=== PATIENT | male | born 1975 | race American Indian/Alaskan Native ===

== ENCOUNTER 2017-02-20 12:18 | Emergency (ER) | payer SELFPAY ==
[2017-02-20 13:01] VITALS: BP 126/76
[2017-02-20 13:27] LABS: Basophils % (Auto) 0.7 % (0.0-1.8); Eosinophils % (Auto) 2.4 % (0.0-4.3); Hematocrit 42.7 % (35.5-45.6); Hemoglobin 14.4 gm/dl (11.8-15.2); Mean Corpuscular HGB Conc 34 % (32-34); Mean Corpuscular Hemoglobin 29 pg (28-32); Mean Corpuscular Volume 86 fl (84-94); Platelet Count 280 K/mm3 (140-440); Red Blood Count 4.99 M/mm3 (3.65-5.03); Red Cell Distribution Width 13.4 % (13.2-15.2); White Blood Count 6.4 K/mm3 (4.5-11.0)
[2017-02-20 13:37] LABS: Anion Gap 19 mmol/L; BUN/Creatinine Ratio 12.22; Blood Urea Nitrogen 11 mg/dL (9-20); Calcium 9.3 mg/dL (8.4-10.2); Carbon Dioxide 23 mmol/L (22-30); Chloride 97.5 mmol/L (98-107); Glucose 408 mg/dL (75-100); Potassium 4.2 mmol/L (3.6-5.0); Sodium 135 mmol/L (137-145)
[2017-02-20 13:47] LABS: Bilirubin,Urine NEG (Negative); Blood,Urine NEG (Negative); Ketones,Urine NEG (Negative); Leukocyte Esterase,Urine NEG (Negative); Nitrite,Urine NEG (Negative); Protein,Urine <15 mg/dL mg/dL (Negative); Urobilinogen,Urine < 2.0 mg/dL (<2.0); WBC,Urine < 1.0 /HPF (0.0-6.0)
--- NOTE | 2017-02-21 14:36 | ED Elopement Review ---
ED Pt Elopement review - Results review Lab results: Laboratory Tests 02/20/17 02/20/17 02/20/17 12:56 13:03 13:03 WBC 6.4 RBC 4.99 Hgb 14.4 Hct 42.7 MCV 86 MCH 29 MCHC 34 RDW 13.4 Plt Count 280 Lymph % (Auto) 35.1 H [place] % (Auto) 11.0 H Eos % (Auto) 2.4 Baso % (Auto) 0.7 Lymph # 2.3 [place] # 0.7 Eos # 0.2 Baso # 0.0 Seg Neutrophils % 50.8 Seg Neutrophils # 3.3 VBG pH Sodium 135 L Potassium 4.2 Chloride 97.5 L Carbon Dioxide 23 Anion Gap 19 BUN 11 Creatinine 0.9 Estimated GFR > 60 BUN/Creatinine Ratio 12.22 Glucose 408 H POC Glucose 378 H Calcium 9.3 Urine Color Urine Turbidity Urine pH Ur Specific [place] Urine Protein Urine Glucose (UA) Urine Ketones Urine Blood Urine Nitrite Urine Bilirubin Urine Urobilinogen Ur Leukocyte Esterase Urine WBC (Auto) Urine RBC (Auto) 02/20/17 02/20/17 13:03 13:30 WBC RBC Hgb Hct MCV MCH MCHC RDW Plt Count Lymph % (Auto) [place] % (Auto) Eos % (Auto) Baso % (Auto) Lymph # [place] # Eos # Baso # Seg Neutrophils % Seg Neutrophils # VBG pH 7.374 Sodium Potassium Chloride Carbon Dioxide Anion Gap BUN Creatinine Estimated GFR BUN/Creatinine Ratio Glucose POC Glucose Calcium Urine Color Straw Urine Turbidity Clear Urine pH 6.0 Ur Specific [place] 1.028 Urine Protein <15 mg/dl Urine Glucose (UA) >=500 Urine Ketones Neg Urine Blood Neg Urine Nitrite Neg Urine Bilirubin Neg Urine Urobilinogen < 2.0 Ur Leukocyte Esterase Neg Urine WBC (Auto) < 1.0 Urine RBC (Auto) 1.0 - Call Back decision Pt Call Back Decision: Pt to F/U with PMD
== END 2017-02-20 13:30 | disposition left against medical advice (07) ==
LOC: ED 12:18
DX: R30.0 Dysuria (principal); Z53.21 Procedure and treatment not carried out due to patient leaving prior to being seen by health care provider
CPT/HCPCS: 36415; 80048; 81001; 82805; 82962; 85025

== ENCOUNTER 2017-02-21 09:14 | Emergency (ER) | payer OTHER ==
[2017-02-21 10:07] LABS: Basophils % (Auto) 0.6 % (0.0-1.8); Eosinophils % (Auto) 2.6 % (0.0-4.3); Hematocrit 41.2 % (35.5-45.6); Hemoglobin 13.9 gm/dl (11.8-15.2); Mean Corpuscular HGB Conc 34 % (32-34); Mean Corpuscular Hemoglobin 29 pg (28-32); Mean Corpuscular Volume 85 fl (84-94); Platelet Count 273 K/mm3 (140-440); Red Blood Count 4.85 M/mm3 (3.65-5.03); Red Cell Distribution Width 13.3 % (13.2-15.2); White Blood Count 5.9 K/mm3 (4.5-11.0)
[2017-02-21 10:27] LABS: Bilirubin,Urine NEG (Negative); Blood,Urine NEG (Negative); Ketones,Urine TR mg/dL (Negative); Leukocyte Esterase,Urine NEG (Negative); Mucus,Urine FEW /HPF; Nitrite,Urine NEG (Negative); Protein,Urine <15 mg/dL mg/dL (Negative); RBC,Urine < 1.0 /HPF (0.0-6.0); Urobilinogen,Urine < 2.0 mg/dL (<2.0); WBC,Urine < 1.0 /HPF (0.0-6.0)
[2017-02-21 10:45] LABS: Anion Gap 19 mmol/L; BUN/Creatinine Ratio 9.23; Blood Urea Nitrogen 12 mg/dL (9-20); Calcium 8.6 mg/dL (8.4-10.2); Carbon Dioxide 22 mmol/L (22-30); Chloride 97.3 mmol/L (98-107); Glucose 424 mg/dL (75-100); Potassium 4.1 mmol/L (3.6-5.0); Sodium 134 mmol/L (137-145)
[2017-02-21] MEDS ORDERED: NACL 0.9% 1000 ML 1,000 ML IV ONE (14:43)
--- NOTE | 2017-02-21 15:40 | Emergency Department Report ---
ED General Adult HPI - General Chief complaint: Hyperglycemia Stated complaint: ELEVATED BLOOD SUGAR Time Seen by Provider: 02/21/17 14:42 Source: patient Mode of arrival: Ambulatory Limitations: No Limitations - History of Present Illness Initial comments: 41-year-old male with a past medical history not as dependent diabetes since 2011 presents to the hospital elevated blood sugar. Patient is prescribed metformin 500 mg twice a day. Patient took his last dose of metformin yesterday. He presented yesterday with sugar in 300s but left prior to evaluation. Patient admits to missing doses intermittently. He states he's had increased urination frequency, intermittent blurred vision, and times one month. He does not check his blood sugar at home because he has no glucometer or testing strips. Patient does not have a primary care doctor. He denies pain, vomiting, or paresthesias. - Related Data Previous Rx's Medication Instructions Recorded Last Taken Type metFORMIN [Glucophage] 500 mg PO BID #60 tablet 02/21/17 Unknown Rx Allergies Allergy/AdvReac Type Severity Reaction Status Date / Time No Known Allergies Allergy Verified 02/21/17 09:38 ED Review of Systems ROS: Stated complaint: ELEVATED BLOOD SUGAR Other details as noted in HPI Comment: All other systems reviewed and negative Other: Constitutional: No fevers chills Eyes: No eye pain visual changes ENT: No ear pain or throat pain Neck: Denies pain Respiratory: Denies cough wheezing shortness of breath Cardiovascular: Denies chest pain, palpitations, syncope GI: Denies abdominal pain, nausea, vomiting, diarrhea : Denies dysuria Musculoskeletal: Denies back pain Skin: Denies rash, lesions, erythema Neurologic: Denies headache, numbness, weakness Psychiatric: Denies suicidal ideation, hallucinations ED Past Medical Hx - Past Medical History Hx Diabetes: Yes - Surgical History Past Surgical History?: No - Social History Smoking Status: Never Smoker Substance Use Type: Alcohol - Medications Home Medications: Home Medications Medication Instructions Recorded Confirmed Last Taken Type metFORMIN [Glucophage] 500 mg PO BID #60 tablet 02/21/17 Unknown Rx ED Physical Exam - General Limitations: No Limitations - Other Other exam information: General: No limitations, patient is alert in no acute distress Head exam: Atraumatic, normocephalic Eyes exam: Normal appearance, pupils equal reactive to light, extraocular movements intact ENT: Moist mucous membrane, normal oropharynx Neck exam: Normal inspection, full range of motion, no meningismus nontender Respiratory exam: Clear to auscultation bilateral, no wheezes, rales, crackles Cardiovascular: Normal rate and rhythm, normal heart sounds Abdomen: Soft, nondistended, and nontender, with normal bowel sounds, no rebound, or guarding Extremity: Full range of motion normal inspection no deformity Back: Normal Inspection, full range of motion, no tenderness Neurologic: Alert, oriented x3, cranial nerves intact, no motor or sensory deficit Psychiatric: normal affect, normal mood Skin: Warm, dry, intact ED Course Vital Signs 02/21/17 09:34 Temperature 98.4 F Pulse Rate 75 Respiratory 17 Rate Blood Pressure 125/69 O2 Sat by Pulse 96 Oximetry - Reevaluation(s) Reevaluation #1: 02/21/17 15:41 Insulin and IV fluids ordered 02/21/17 17:32 Glucose improved in the 200s. No signs of DKA. ED Medical Decision Making - Lab Data Result diagrams: 02/21/17 09:51 02/21/17 09:51 Lab Results 02/21/17 02/21/17 02/21/17 Range/Units 09:31 09:51 09:51 WBC 5.9 (4.5-11.0) K/mm3 RBC 4.85 (3.65-5.03) M/mm3 Hgb 13.9 (11.8-15.2) gm/dl Hct 41.2 (35.5-45.6) % MCV 85 (84-94) fl MCH 29 (28-32) pg MCHC 34 (32-34) % RDW 13.3 (13.2-15.2) % Plt Count 273 (140-440) K/mm3 Lymph % (Auto) 31.3 (13.4-35.0) % [place] % (Auto) 9.5 H (0.0-7.3) % Eos % (Auto) 2.6 (0.0-4.3) % Baso % (Auto) 0.6 (0.0-1.8) % Lymph # 1.8 (1.2-5.4) K/mm3 [place] # 0.6 (0.0-0.8) K/mm3 Eos # 0.2 (0.0-0.4) K/mm3 Baso # 0.0 (0.0-0.1) K/mm3 Seg Neutrophils % 56.0 (40.0-70.0) % Seg Neutrophils # 3.3 (1.8-7.7) K/mm3 Sodium 134 L (137-145) mmol/L Potassium 4.1 (3.6-5.0) mmol/L Chloride 97.3 L (98-107) mmol/L Carbon Dioxide 22 (22-30) mmol/L Anion Gap 19 mmol/L BUN 12 (9-20) mg/dL Creatinine 1.3 (0.8-1.5) mg/dL Estimated GFR > 60 ml/min BUN/Creatinine Ratio 9.23 % Glucose 424 H (75-100) mg/dL POC Glucose 389 H (70-105) Calcium 8.6 (8.4-10.2) mg/dL Urine Color (Yellow) Urine Turbidity (Clear) Urine pH (5.0-7.0) Ur Specific [place] (1.003-1.030) Urine Protein (Negative) mg/dL Urine Glucose (UA) (Negative) mg/dL Urine Ketones (Negative) mg/dL Urine Blood (Negative) Urine Nitrite (Negative) Urine Bilirubin (Negative) Urine Urobilinogen (<2.0) mg/dL Ur Leukocyte Esterase (Negative) Urine WBC (Auto) (0.0-6.0) /HPF Urine RBC (Auto) (0.0-6.0) /HPF U Epithel Cells (Auto) (0-13.0) /HPF Urine Mucus /HPF 02/21/17 02/21/17 02/21/17 Range/Units 14:33 17:01 Unknown WBC (4.5-11.0) K/mm3 RBC (3.65-5.03) M/mm3 Hgb (11.8-15.2) gm/dl Hct (35.5-45.6) % MCV (84-94) fl MCH (28-32) pg MCHC (32-34) % RDW (13.2-15.2) % Plt Count (140-440) K/mm3 Lymph % (Auto) (13.4-35.0) % [place] % (Auto) (0.0-7.3) % Eos % (Auto) (0.0-4.3) % Baso % (Auto) (0.0-1.8) % Lymph # (1.2-5.4) K/mm3 [place] # (0.0-0.8) K/mm3 Eos # (0.0-0.4) K/mm3 Baso # (0.0-0.1) K/mm3 Seg Neutrophils % (40.0-70.0) % Seg Neutrophils # (1.8-7.7) K/mm3 Sodium (137-145) mmol/L Potassium (3.6-5.0) mmol/L Chloride (98-107) mmol/L Carbon Dioxide (22-30) mmol/L Anion Gap mmol/L BUN (9-20) mg/dL Creatinine (0.8-1.5) mg/dL Estimated GFR ml/min BUN/Creatinine Ratio % Glucose (75-100) mg/dL POC Glucose 324 H 241 H (70-105) Calcium (8.4-10.2) mg/dL Urine Color Straw (Yellow) Urine Turbidity Clear (Clear) Urine pH 6.0 (5.0-7.0) Ur Specific [place] 1.027 (1.003-1.030) Urine Protein <15 mg/dl (Negative) mg/dL Urine Glucose (UA) >=500 (Negative) mg/dL Urine Ketones Tr (Negative) mg/dL Urine Blood Neg (Negative) Urine Nitrite Neg (Negative) Urine Bilirubin Neg (Negative) Urine Urobilinogen < 2.0 (<2.0) mg/dL Ur Leukocyte Esterase Neg (Negative) Urine WBC (Auto) < 1.0 (0.0-6.0) /HPF Urine RBC (Auto) < 1.0 (0.0-6.0) /HPF U Epithel Cells (Auto) < 1.0 (0-13.0) /HPF Urine Mucus Few /HPF - Medical Decision Making Patient's elevation in glucose likely secondary to poor compliance with metformin and likely poor compliance with diabetic diet. Patient does not monitor his blood sugar at home. He was consult on the importance of taking his medication as prescribed and monitoring and documenting his blood glucose and follow-up with the primary care doctor. - Differential Diagnosis DKA, hyperglycemia, medication noncompliance Critical Care Time: No Critical care attestation.: If time is entered above; I have spent that time in minutes in the direct care of this critically ill patient, excluding procedure time. ED Disposition Clinical Impression: Uncontrolled diabetes mellitus, Noncompliance with medication regimen Disposition: DC- TO HOME OR SELFCARE Is pt being admited?: No Condition: Stable Instructions: Diabetes Mellitus Type 2 in Adults (ED) Additional Instructions: Take the medication as prescribed. It is very important that you monitor your blood sugar at home. Follow-up with the primary care doctor or clinic provided to determine if your current dose of metformin is adequate to control your sugar. Prescriptions: metFORMIN [Glucophage] 500 mg PO BID #60 tablet Referrals: [facility] [Provider Group] - 3-5 Days Time of Disposition: 17:47
[2017-02-21] MEDS ORDERED: GLUCOPHAGE PO ONE (17:10)
[2017-02-21 18:34] VITALS: BP 136/88
== END 2017-02-21 18:30 | disposition home or self-care (01) ==
LOC: ED 09:14
DX: E11.65 Type 2 diabetes mellitus with hyperglycemia (principal)
CPT/HCPCS: 36415; 80048; 81001; 82962; 85025; 96361; 96374; 99284; J7030; J1815

== ENCOUNTER 2018-03-10 18:07 | Emergency (ER) | payer SELFPAY ==
[2018-03-10 18:33] VITALS: BP 132/92
--- NOTE | 2018-03-11 01:33 | Emergency Department Report ---
ED Rash HPI - HPI Chief Complaint: Skin Rash Stated Complaint: ITCHING/BURNING IN GENTIAL AREA Time Seen by Provider: 03/11/18 01:18 Duration: 1 month Location: Other (rash groin) Rash Symptoms: No Itching, No Facial Swelling, No Tongue/Oral Swelling, No Breathing Difficulties, No Choking Sensation, No Wheezing/Dyspnea, No Peeling, No Blistering, No Fever Severity: mild ED Review of Systems ROS: Stated complaint: ITCHING/BURNING IN GENTIAL AREA Other details as noted in HPI Constitutional: denies: chills, fever Eyes: denies: eye pain, eye discharge, vision change ENT: denies: ear pain, throat pain Respiratory: denies: cough, shortness of breath, wheezing Cardiovascular: denies: chest pain, palpitations Endocrine: no symptoms reported Gastrointestinal: denies: abdominal pain, nausea, diarrhea Genitourinary: denies: urgency, dysuria Musculoskeletal: denies: back pain, joint swelling, arthralgia Skin: denies: rash, lesions Neurological: denies: headache, weakness, paresthesias Psychiatric: denies: anxiety, depression Hematological/Lymphatic: denies: easy bleeding, easy bruising ED Past Medical Hx - Past Medical History Hx Diabetes: Yes - Social History Smoking Status: Former Smoker Substance Use Type: Alcohol - Medications Home Medications: Home Medications Medication Instructions Recorded Confirmed Last Taken Type metFORMIN [Glucophage] 500 mg PO BID #60 tablet 02/21/17 Unknown Rx Terbinafine HCl [Terbinafine] 30 gm TP 1XW PRN #1 tub 03/11/18 Unknown Rx Rash Exam - Exam General: Vital signs noted. No distress. Alert and acting appropriately. HEENT: No Periorbital Edema, No Conjuctival Injection, No Chemosis, No Perioral Edema, No Tongue Edema, No Uvular Edema, No Compromised Airway, No Drooling Lungs: Yes Good Air Exchange (Normal Breath Sounds), No Wheezes, No Ronchi, No Stridor, No Cough, No Labored Respirations, No Retractions, No Use of Accessory Muscles, No Other Abnormal Lung Sounds Heart: Yes Regular, No Murmur Skin: Yes Urticarial Rash, Yes Erythema, No Maculopapular Rash, No Morbilliform rash, No Bulla(e), No Excoriations, No Weeping, No Tenderness, No Edema, No Encrustations, No Other Other: Positive: Abdomen Normal, Neurologic Normal, Musculoskeletal Normal ED Course Vital Signs 03/10/18 18:31 Temperature 99 F Pulse Rate 76 Respiratory 18 Rate Blood Pressure 132/92 O2 Sat by Pulse 99 Oximetry ED Medical Decision Making - Radiology Data Radiology results: report reviewed, image reviewed - Medical Decision Making For tinea groin studies or S4 last month and she intermittently erythema patient denies penile discharge no fever no chills no nausea no vomiting which revealed a tinea cruis patient was DC'd home in stable condition and verbalized understanding agreement with [facility] attestation.: If time is entered above; I have spent that time in minutes in the direct care of this critically ill patient, excluding procedure time. ED Disposition Clinical Impression: Tinea cruris Disposition: DC-01 TO HOME OR SELFCARE Is pt being admited?: No Does the pt Need Aspirin: No Condition: Good Instructions: Jock Itch (ED), Terbinafine (On the skin) Prescriptions: Terbinafine HCl [Terbinafine] 30 gm TP 1XW PRN #1 tub PRN Reason: Rash Referrals: PRIMARY CARE, [Primary Care Provider] - 3-5 Days Forms: Work/School Release Form(ED) Time of Disposition: 01:38
== END 2018-03-11 04:12 | disposition home or self-care (01) ==
LOC: ED 18:07
DX: B35.6 Tinea cruris (principal); E11.9 Type 2 diabetes mellitus without complications; Z79.84 Long term (current) use of oral hypoglycemic drugs; Z87.891 Personal history of nicotine dependence
CPT/HCPCS: 99281

== ENCOUNTER 2018-12-21 05:15 | Emergency (ER) | payer OTHER ==
--- NOTE | 2018-12-21 05:54 | XRay Report ---
PROCEDURE: XR CHEST 1V AP TECHNIQUE: Chest radiograph single view. HISTORY: Chest Pain COMPARISONS: None . FINDINGS: Heart: Normal. Mediastinum/Vessels: Normal. Lungs/Pleural space: Normal. Bony thorax: No acute osseous abnormality. Life support devices: None. IMPRESSION: No acute cardiopulmonary abnormality. This document is electronically signed by El Bertrand MD., December 21 2018 05:52:35 AM ET
[2018-12-21 06:03] LABS: Basophils % (Auto) 0.8 % (0.0-1.8); Eosinophils # (Auto) 0.2 K/mm3 (0.0-0.4); Eosinophils % (Auto) 3.4 % (0.0-4.3); Hematocrit 41.5 % (35.5-45.6); Hemoglobin 13.9 gm/dl (11.8-15.2); Lymphocytes % (Auto) 38.3 % (13.4-35.0); Mean Corpuscular HGB Conc 34 % (32-34); Mean Corpuscular Volume 86 fl (84-94); Monocytes # (Auto) 0.7 K/mm3 (0.0-0.8); Monocytes % (Auto) 13.3 % (0.0-7.3); Platelet Count 296 K/mm3 (140-440)
[2018-12-21 06:19] LABS: BUN/Creatinine Ratio 10; Blood Urea Nitrogen 9 mg/dL (9-20); Calcium 9.1 mg/dL (8.4-10.2); Hemolysis Index 24
[2018-12-21 08:24] VITALS: BP 123/79
--- NOTE | 2018-12-21 08:36 | Emergency Department Report ---
ED Chest Pain HPI - General Chief Complaint: Chest Pain Stated Complaint: CHEST PAIN Source: patient, EMS Mode of arrival: Stretcher Limitations: No Limitations - History of Present Illness Initial Comments: Mr. Rawls is a 43-year-old male with history of [id number] diabetes who presents with palpitations last night and this morning. On Thursday he was evaluated for similar symptoms at [facility]. He had normal EKG and blood work according to his report. Last night he's began having palpitations. After taking a bath, the symptoms subsided. This morning just after awakening from sleep, he had palpitations. He has been under a lot of stress. He has had a lot of anxiety. His money is tight. He is unable to afford insurance for a car that has recently broken down. He denies suicidal ideation. Denies depression. He drinks 2-3 cans of beer daily. He denies tobacco abuse. He has been without metformin medication for several months. He does not have a PCP. previously followed at [facility]. His last appointment occurred in May. His blood sugar was 216 this morning according to his report. MD Complaint: chest pain -: Gradual Onset: during rest Severity scale (0 -10): 5 Consistency: now resolved Improves With: rest, remaining still Context: recent illness - Related Data Previous Rx's Medication Instructions Recorded Last Taken Type metFORMIN [Glucophage] 500 mg PO BID #60 tablet 02/21/17 Unknown Rx Terbinafine HCl [Terbinafine] 30 gm TP 1XW PRN #1 tub 03/11/18 Unknown Rx metFORMIN [Glucophage] 500 mg PO BID 30 Days #60 tablet 12/21/18 Unknown Rx Allergies Allergy/AdvReac Type Severity Reaction Status Date / Time No Known Allergies Allergy Verified 03/10/18 18:31 Heart Score - HEART Score History: Slightly suspicious EKG: Non-specific Age: < 45 Risk factors: 1-2 risk factors Troponin: < normal limit HEART Score: 2 ED Review of Systems ROS: Stated complaint: CHEST PAIN Other details as noted in HPI Comment: All other systems reviewed and negative Constitutional: denies: fever, malaise Respiratory: denies: cough Cardiovascular: chest pain, palpitations ED Past Medical Hx - Past Medical History Previous Medical History?: Yes Hx Diabetes: Yes - Surgical History Past Surgical History?: No - Family History Family history: no significant - Social History Smoking Status: Never Smoker Substance Use Type: Alcohol - Medications Home Medications: Home Medications Medication Instructions Recorded Confirmed Last Taken Type metFORMIN [Glucophage] 500 mg PO BID #60 tablet 02/21/17 Unknown Rx Terbinafine HCl [Terbinafine] 30 gm TP 1XW PRN #1 tub 03/11/18 Unknown Rx metFORMIN [Glucophage] 500 mg PO BID 30 Days #60 tablet 12/21/18 Unknown Rx ED Physical Exam - General Limitations: No Limitations General appearance: alert, in no apparent distress, other (smiling, speaking on cellular phone, appears comfortable and well) - Head Head exam: Present: atraumatic, normocephalic - Eye Eye exam: Present: normal appearance - ENT ENT exam: Present: mucous membranes moist - Neck Neck exam: Present: normal inspection, full ROM. Absent: tenderness, meningismus - Respiratory Respiratory exam: Present: normal lung sounds bilaterally. Absent: respiratory distress, wheezes, rales, rhonchi - Cardiovascular Cardiovascular Exam: Present: regular rate, normal rhythm, normal heart sounds. Absent: systolic murmur, diastolic murmur, rubs, gallop - GI/Abdominal GI/Abdominal exam: Present: soft, normal bowel sounds. Absent: distended, tenderness, guarding, rebound - Rectal Rectal exam: Present: deferred - Extremities Exam Extremities exam: Present: normal inspection - Back Exam Back exam: Present: normal inspection - Neurological Exam Neurological exam: Present: alert, oriented X3 - Psychiatric Psychiatric exam: Present: normal affect, normal mood. Absent: depressed, homicidal ideation, suicidal ideation - Skin Skin exam: Present: warm, dry, intact, normal color. Absent: rash ED Course Vital Signs 12/21/18 12/21/18 12/21/18 05:20 05:21 05:22 Temperature 97.8 F Pulse Rate 81 93 H Respiratory 16 15 Rate Blood Pressure O2 Sat by Pulse 98 Oximetry 12/21/18 12/21/18 12/21/18 05:24 05:25 05:26 Temperature Pulse Rate 78 67 74 Respiratory 17 17 Rate Blood Pressure O2 Sat by Pulse 97 96 Oximetry 12/21/18 12/21/18 12/21/18 05:28 05:30 05:32 Temperature Pulse Rate 90 75 Respiratory 12 18 12 Rate Blood Pressure 144/74 O2 Sat by Pulse 97 99 99 Oximetry 12/21/18 12/21/18 12/21/18 05:34 05:36 05:38 Temperature Pulse Rate 77 76 74 Respiratory 12 12 13 Rate Blood Pressure 144/74 144/74 144/74 O2 Sat by Pulse 98 100 97 Oximetry 12/21/18 12/21/18 12/21/18 05:40 05:42 05:44 Temperature Pulse Rate 74 72 79 Respiratory 12 9 L 13 Rate Blood Pressure 144/74 144/74 144/74 O2 Sat by Pulse 98 98 100 Oximetry 12/21/18 12/21/18 12/21/18 05:45 05:46 05:48 Temperature Pulse Rate 81 75 78 Respiratory 16 15 15 Rate Blood Pressure 119/83 119/83 119/83 O2 Sat by Pulse 95 97 98 Oximetry 12/21/18 12/21/18 12/21/18 05:50 05:52 05:54 Temperature Pulse Rate 88 74 76 Respiratory 11 L 13 14 Rate Blood Pressure 119/83 119/83 119/83 O2 Sat by Pulse 98 99 98 Oximetry 12/21/18 12/21/18 12/21/18 05:56 06:00 07:08 Temperature Pulse Rate 76 69 90 Respiratory 14 15 14 Rate Blood Pressure 119/83 113/73 131/82 O2 Sat by Pulse 97 96 99 Oximetry 12/21/18 12/21/18 12/21/18 07:19 07:30 08:00 Temperature Pulse Rate 73 69 Respiratory 18 16 13 Rate Blood Pressure 114/78 123/79 O2 Sat by Pulse 97 96 Oximetry ED Medical Decision Making - Lab Data Result diagrams: 12/21/18 05:52 12/21/18 05:52 Laboratory Results - last 24 hr 12/21/18 12/21/18 12/21/18 05:52 05:52 07:03 WBC 5.2 RBC 4.80 Hgb 13.9 Hct 41.5 MCV 86 MCH 29 MCHC 34 RDW 14.0 Plt Count 296 Lymph % (Auto) 38.3 H [place] % (Auto) 13.3 H Eos % (Auto) 3.4 Baso % (Auto) 0.8 Lymph # 2.0 [place] # 0.7 Eos # 0.2 Baso # 0.0 Seg Neutrophils % 44.2 Seg Neutrophils # 2.3 Sodium 136 L Potassium 4.0 Chloride 101.2 Carbon Dioxide 23 Anion Gap 16 BUN 9 Creatinine 0.9 Estimated GFR > 60 BUN/Creatinine Ratio 10 Glucose 241 H Calcium 9.1 Troponin T < 0.010 < 0.010 - EKG Data 12/21/18 08:32 EKG obtained 527 Normal sinus rhythm normal axis rate 70 beats a minute no ST elevation no signs of ischemia. Normal EKG no signs of pericarditis - Radiology Data Radiology results: report reviewed Chest radiograph no acute process according to radiology report - Medical Decision Making Mr. Rawls presents with palpitations likely due to anxiety. Differential diagnosis includes ectopy, thyroid disease, GERD, arrhythmia such as atrial fibrillation fibrillation. I do not suspect acute coronary syndrome. I do not suspect lethal arrhythmia. I do not suspect pulmonary embolism. I strongly encouraged obtaining primary care. I referred him to outpatient site lead. Also referred him to outpatient physician party plan salesperson. I have prescribed 30 days of metformin. Critical care attestation.: If time is entered above; I have spent that time in minutes in the direct care of this critically ill patient, excluding procedure time. ED Disposition Clinical Impression: Palpitations Disposition: DC-01 TO HOME OR SELFCARE Is pt being admited?: No Does the pt Need Aspirin: No Condition: Stable Instructions: Palpitations (ED) Prescriptions: metFORMIN [Glucophage] 500 mg PO BID 30 Days #60 tablet Referrals: AMMY JARAMILLO MD [Staff Physician] - KEN FIORE MD [Staff Physician] - BELLE Forms: Work/School Release Form(ED)
== END 2018-12-21 08:44 | disposition home or self-care (01) ==
LOC: ED 05:15
DX: R00.2 Palpitations (principal); E11.9 Type 2 diabetes mellitus without complications; Z79.899 Other long term (current) drug therapy
CPT/HCPCS: 36415; 71045; 80048; 84484; 85025; 93005; 93010; 99285

== ENCOUNTER 2019-04-28 21:33 | Emergency (ER) | payer SELFPAY ==
--- NOTE | 2019-04-28 22:00 | Emergency Department Report ---
Blank Doc - Documentation Documentation: 43 y/o Male with PMH of DM presents to Ed c/o of 2 day history of chest pain off and on for several minutes. No palliative or provocative factors reported. thinks it is secondary to his elevated blood sugar. This initial assessment/diagnostic orders/clinical plan/treatment(s) is/are subject to change based on patient's health status, clinical progression and re- assessment by fellow clinical providers in the ED. Further treatment and workup at subsequent clinical providers discretion. Patient/guardians urged not to elope from the ED as their condition may be serious if not clinically assessed and managed. Initial orders include: Cardiac evaluation
--- NOTE | 2019-04-28 22:54 | XRay Report ---
CHEST 2 VIEWS INDICATION / CLINICAL INFORMATION: Chest Pain. COMPARISON: None available. FINDINGS: SUPPORT DEVICES: None. HEART / MEDIASTINUM: No significant abnormality. LUNGS / PLEURA: No significant pulmonary or pleural abnormality. No pneumothorax. ADDITIONAL FINDINGS: No significant additional findings. IMPRESSION: 1. No acute findings. Signer Name: Danny Renteria MD Signed: 04/28/2019 10:50 PM Workstation Name: [id number]
[2019-04-28 23:09] LABS: Basophils % (Auto) 0.5 % (0.0-1.8); Eosinophils # (Auto) 0.2 K/mm3 (0.0-0.4); Eosinophils % (Auto) 3.8 % (0.0-4.3); Hematocrit 40.3 % (35.5-45.6); Hemoglobin 13.5 gm/dl (11.8-15.2); Lymphocytes # (Auto) 2.3 K/mm3 (1.2-5.4); Lymphocytes % (Auto) 37.5 % (13.4-35.0); Mean Corpuscular HGB Conc 34 % (32-34); Mean Corpuscular Volume 87 fl (84-94); Monocytes # (Auto) 0.7 K/mm3 (0.0-0.8); Monocytes % (Auto) 10.8 % (0.0-7.3); Platelet Count 266 K/mm3 (140-440); Red Blood Count 4.63 M/mm3 (3.65-5.03); Red Cell Distribution Width 13.6 % (13.2-15.2)
[2019-04-28 23:22] LABS: Alanine Aminotransferase 35 units/L (7-56); Albumin 3.8 g/dL (3.9-5); BUN/Creatinine Ratio 13; Blood Urea Nitrogen 12 mg/dL (9-20); Calcium 8.3 mg/dL (8.4-10.2); Hemolysis Index 29
[2019-04-29] MEDS ORDERED: NACL 0.9% 1000 ML 1,000 ML IV ONE (01:38)
[2019-04-29] MEDS ORDERED: MORPHINE IV ONE (01:38)
[2019-04-29] MEDS ORDERED: HumuLIN R IV ONE (01:56)
[2019-04-29 02:40] LABS: INR 1.03 (0.87-1.13)
[2019-04-29 02:41] LABS: Partial Thromboplastin Time 25.7 Sec. (24.2-36.6)
--- NOTE | 2019-04-29 03:12 | Emergency Department Report ---
<PEDRO LUIS BRAVO - Last Filed: 04/29/19 03:27> ED Chest Pain HPI - General Chief Complaint: Chest Pain Stated Complaint: CP Time Seen by Provider: 04/28/19 21:57 Source: patient Mode of arrival: Ambulatory Limitations: No Limitations - History of Present Illness Initial Comments: This is a 43-year-old male nontoxic, well nourished in appearance, no acute signs of distress presents to the ED with c/o of intermittent midsternum chest pain and shortness of breathe x1 week. Patient denies any radiation of pain. Patient curretnly denies any chest pains or SOB. Patient describes pain as tightness intermittently. Current pain level of 0/10. Patient denies any upper respiratory symptoms. Patient denies any hemoptysis, fever, chills, nausea, vomiting, headache, stiff neck, numbness, tingling, abdominal pain. Patient denies pleuritic chest pain. Patient denies any recent travels or long car rides. Patient denies any recent surgeries or any sick contacts. Patient denies any drug allergies. Past medical history includes DM which he stated is not complaint with medications as he is out of metformin. MD Complaint: chest pain, other (shortness of breathe) -: week(s) (1) Pain Radiation: none Severity scale (0 -10): 0 Consistency: now resolved Improves With: nothing Worsens With: nothing re: denies: nausea, vomting, diaphoresis, dyspnea, sense of impending doom Other Symptoms: denies: cough, fever, syncope, rash, acid taste in mouth, leg swelling, palpitations, burping Treatments Prior to Arrival: none Aspirin use within the Past 7 Days: (0) No - Related Data On Oral Contraceptives: No Previous Rx's Medication Instructions Recorded Last Taken Type metFORMIN [Glucophage] 500 mg PO BID #60 tablet 02/21/17 Unknown Rx Terbinafine HCl [Terbinafine] 30 gm TP 1XW PRN #1 tub 03/11/18 Unknown Rx metFORMIN [Glucophage] 500 mg PO BID 30 Days #60 tablet 12/21/18 Unknown Rx metFORMIN [Glucophage] 500 mg PO BID #60 tablet 04/29/19 Unknown Rx Allergies Allergy/AdvReac Type Severity Reaction Status Date / Time No Known Allergies Allergy Verified 03/10/18 18:31 Heart Score - HEART Score History: Slightly suspicious EKG: Normal Age: < 45 Risk factors: 1-2 risk factors Troponin: < normal limit HEART Score: 1 ED Review of Systems Constitutional: denies: chills, fever Eyes: denies: eye pain, eye discharge, vision change ENT: denies: ear pain, throat pain Respiratory: shortness of breath. denies: cough, wheezing Cardiovascular: chest pain. denies: palpitations Endocrine: no symptoms reported Gastrointestinal: denies: abdominal pain, nausea, diarrhea Genitourinary: denies: urgency, dysuria Musculoskeletal: denies: back pain, joint swelling, arthralgia Skin: denies: rash, lesions Neurological: denies: headache, weakness, paresthesias Psychiatric: denies: anxiety, depression Hematological/Lymphatic: denies: easy bleeding, easy bruising ED Past Medical Hx - Past Medical History Previous Medical History?: Yes Hx Diabetes: Yes - Surgical History Past Surgical History?: No - Social History Smoking Status: Never Smoker Substance Use Type: None - Medications Home Medications: Home Medications Medication Instructions Recorded Confirmed Last Taken Type metFORMIN [Glucophage] 500 mg PO BID #60 tablet 02/21/17 Unknown Rx Terbinafine HCl [Terbinafine] 30 gm TP 1XW PRN #1 tub 03/11/18 Unknown Rx metFORMIN [Glucophage] 500 mg PO BID 30 Days #60 tablet 12/21/18 Unknown Rx metFORMIN [Glucophage] 500 mg PO BID #60 tablet 04/29/19 Unknown Rx ED Physical Exam - General Limitations: No Limitations General appearance: alert, in no apparent distress - Head Head exam: Present: atraumatic, normocephalic - Neck Neck exam: Present: normal inspection, full ROM. Absent: tenderness, meningismus, lymphadenopathy - Respiratory Respiratory exam: Present: normal lung sounds bilaterally. Absent: respiratory distress, wheezes, rales, rhonchi, stridor, chest wall tenderness, accessory muscle use, decreased breath sounds, prolonged expiratory - Cardiovascular Cardiovascular Exam: Present: regular rate, normal rhythm, normal heart sounds. Absent: bradycardia, tachycardia, irregular rhythm, systolic murmur, diastolic murmur, rubs, gallop - Extremities Exam Extremities exam: Present: normal inspection, full ROM - Back Exam Back exam: Present: normal inspection, full ROM. Absent: tenderness, CVA tenderness (R), CVA tenderness (L) - Neurological Exam Neurological exam: Present: alert, oriented X3, normal gait - Psychiatric Psychiatric exam: Present: normal affect, normal mood ED Course - Reevaluation(s) Reevaluation #1: 04/29/19 03:10 Patient is speaking in full sentences with no signs of distress noted. BRIJESH score - Brijesh Score Age > 65: (0) No Aspirin use within the Past 7 Days: (0) No 3 or more CAD Risk Factors: (0) No 2 or more Angina events in past 24 hrs: (0) No Known CAD with more than 50% Stenosis: (0) No Elevated Cardiac Markers: (0) No ST Deviation Greater than 0.5mm: (0) No BRIJESH Score: 0 ED Medical Decision Making - Lab Data Result diagrams: 04/28/19 22:33 04/28/19 22:33 - Medical Decision Making This is a 43-year-old male that presents with atypical chest pain and uncontrolled diabetes. Patient is stable and was examined by me. BRIJESH 0 points and HEART score 1 point. Wells criteria for DVT/SVT/PE 0 points. EKG normal sinus rhythm with no significant changes in ST. Chest xray dictated by the radiologist. PAtient is notified of the Xray report with no questions noted. Labs within normal limits. Negative troponin x2. Received insuling and fluids which decreased blood glucose. Patient was instructed to Follow-up with a high school teacher doctor in 2 days or if symptoms worsen and continue return to emergency room as soon as possible. At time of discharge, the patient does not seem toxic or ill in appearance. No acute signs of distress noted. Patient agrees to discharge treatment plan of care. No further questions noted by the patient. - Differential Diagnosis CA, STEMI, PE, costochondritis, atypical CP, CHF ED Disposition Clinical Impression: Atypical chest pain, Noncompliance with medication regimen Uncontrolled diabetes mellitus Qualifiers: Diabetes mellitus type: type 2 Glycemic state: with hyperglycemia Qualified Co de(s): E11.65 - Type 2 diabetes mellitus with hyperglycemia Disposition: -01 TO HOME OR SELFCARE Is pt being admited?: No Does the pt Need Aspirin: No Condition: Stable Instructions: Chest Pain (ED), Diabetes Mellitus Type 2 in Adults (ED) Additional Instructions: Follow-up with a high school teacher doctor in 2 days or if symptoms worsen and continue return to emergency room as soon as possible. Prescriptions: metFORMIN [Glucophage] 500 mg PO BID #60 tablet Referrals: PRIMARY CARE, [Primary Care Provider] - 3-5 Days PILAR AREVALO MD [Staff Physician] - 3-5 Days TYREE ELIZONDO MD [Staff Physician] - 3-[address] [facility] [Outside] - 3-5 Days [facility] [Outside] - 3-5 Days <ANSLEY DONATO - Last Filed: 04/29/19 22:48> ED Review of Systems ROS: Stated complaint: CP Other details as noted in HPI ED Course Vital Signs 04/28/19 04/28/19 04/28/19 21:44 21:45 21:57 Temperature 98.4 F 98.4 F Pulse Rate 76 72 Respiratory 24 18 18 Rate Blood Pressure 108/65 108/65 O2 Sat by Pulse 97 97 Oximetry 04/29/19 04/29/19 04/29/19 01:42 01:45 02:00 Temperature Pulse Rate 64 62 63 Respiratory 16 12 13 Rate Blood Pressure 121/68 123/73 123/73 O2 Sat by Pulse 96 100 100 Oximetry 04/29/19 04/29/19 04/29/19 02:16 02:30 02:46 Temperature Pulse Rate 67 58 L 60 Respiratory 13 16 13 Rate Blood Pressure 126/76 128/68 125/90 O2 Sat by Pulse 100 100 100 Oximetry 04/29/19 04/29/19 04/29/19 03:00 03:16 03:30 Temperature Pulse Rate 67 67 68 Respiratory 13 13 16 Rate Blood Pressure 128/77 128/77 116/61 O2 Sat by Pulse 98 99 99 Oximetry 04/29/19 04/29/19 03:46 04:00 Temperature Pulse Rate 79 65 Respiratory 15 14 Rate Blood Pressure 116/61 106/78 O2 Sat by Pulse 99 100 Oximetry ED Medical Decision Making - Lab Data Result diagrams: 04/28/19 22:33 04/28/19 22:33 - Medical Decision Making pt with a perc PE score of 0 Critical care attestation.: If time is entered above; I have spent that time in minutes in the direct care of this critically ill patient, excluding procedure time.
[2019-04-29 04:18] VITALS: BP 106/78
== END 2019-04-29 04:18 | disposition home or self-care (01) ==
LOC: ED 21:33
DX: R07.2 Precordial pain (principal); E11.65 Type 2 diabetes mellitus with hyperglycemia; Z91.19 Patient's noncompliance with other medical treatment and regimen; Z79.84 Long term (current) use of oral hypoglycemic drugs
CPT/HCPCS: 36415; 71046; 80053; 82962; 84484; 85025; 85610; 85730; 93005; 93010; 96361; 96374; 96375; 99284; J2270; J7030; J1815

== ENCOUNTER 2019-10-06 09:38 | Emergency (ER) | payer SELFPAY ==
--- NOTE | 2019-10-06 10:19 | XRay Report ---
CHEST 1 VIEW 10/06/2019 9:11 AM INDICATION / CLINICAL INFORMATION: Chest Pain. COMPARISON: 2 views of the chest from 04/28/2019. FINDINGS: SUPPORT DEVICES: None. HEART / MEDIASTINUM: No significant abnormality. LUNGS / PLEURA: No significant pulmonary or pleural abnormality. No pneumothorax. ADDITIONAL FINDINGS: No significant additional findings. IMPRESSION: 1. No acute abnormality of the chest. Signer Name: Higinio Dennis MD Signed: 10/06/2019 10:15 AM Workstation Name: [id number]
[2019-10-06 10:33] LABS: Basophils % (Auto) 0.7 % (0.0-1.8); Eosinophils # (Auto) 0.1 K/mm3 (0.0-0.4); Eosinophils % (Auto) 2.5 % (0.0-4.3); Hematocrit 41.8 % (35.5-45.6); Lymphocytes # (Auto) 1.7 K/mm3 (1.2-5.4); Lymphocytes % (Auto) 28.4 % (13.4-35.0); Mean Corpuscular HGB Conc 33 % (32-34); Mean Corpuscular Volume 86 fl (84-94); Monocytes # (Auto) 0.7 K/mm3 (0.0-0.8); Monocytes % (Auto) 11.9 % (0.0-7.3); Platelet Count 317 K/mm3 (140-440); Red Blood Count 4.84 M/mm3 (3.65-5.03); Red Cell Distribution Width 13.8 % (13.2-15.2)
[2019-10-06 10:55] LABS: BUN/Creatinine Ratio 13; Blood Urea Nitrogen 10 mg/dL (9-20); Calcium 9.6 mg/dL (8.4-10.2); Hemolysis Index 7
[2019-10-06] MEDS ORDERED: SODIUM CHLORIDE 0.9% 1000 ML 1,000 ML IV ONE ×2 (11:32→14:57)
[2019-10-06] MEDS ORDERED: INSULIN REGULAR, HUMAN 100 UNITS/1 ML IV ONE ×2 (11:32→11:59)
--- NOTE | 2019-10-06 12:03 | Emergency Department Report ---
ED Chest Pain HPI - General Chief Complaint: Chest Pain Stated Complaint: TIGHTNESS AND PAIN IN CHEST, FAST HEART BEAT Time Seen by Provider: 10/06/19 11:14 Source: patient Mode of arrival: Ambulatory Limitations: No Limitations - History of Present Illness Initial Comments: Patient is a 44-year-old male presents emergency room with complaints of chest pain described as a tightness that began yesterday. He states that he has had this recurrently for several months. He denies any pain currently. He states occasionally he feels like he has palpitations. Patient states that he has been to the emergency department 4 times for this complaint but has not followed up with a apprentice painter brush or primary care physician. He denies any nausea, vomiting, diarrhea, fever, leg swelling, shortness of breath. He denies any recent travel or surgery. He states he has a past medical history of diabetes. He states that he stopped taking his metformin for a couple of months but began taking it again today. He has a non-smoker, no drug use. He states he is an occasional drinker. He denies any family cardiac history or history of DVT/PE. Severity scale (0 -10): 7 - Related Data Previous Rx's Medication Instructions Recorded Last Taken Type metFORMIN [Glucophage] 500 mg PO BID #60 tablet 02/21/17 Unknown Rx Terbinafine HCl [Terbinafine] 30 gm TP 1XW PRN #1 tub 03/11/18 Unknown Rx metFORMIN [Glucophage] 500 mg PO BID 30 Days #60 tablet 12/21/18 Unknown Rx metFORMIN [Glucophage] 500 mg PO BID #60 tablet 04/29/19 Unknown Rx metFORMIN [Glucophage] 1,000 mg PO QDAY 30 Days #120 tab 10/06/19 Unknown Rx Allergies Allergy/AdvReac Type Severity Reaction Status Date / Time No Known Allergies Allergy Verified 10/06/19 09:39 Heart Score - HEART Score History: Slightly suspicious EKG: Normal Age: < 45 Risk factors: 1-2 risk factors Troponin: < normal limit HEART Score: 1 ED Review of Systems ROS: Stated complaint: TIGHTNESS AND PAIN IN CHEST, FAST HEART BEAT Other details as noted in HPI Comment: All other systems reviewed and negative ED Past Medical Hx - Past Medical History Hx Diabetes: Yes - Surgical History Past Surgical History?: No - Social History Smoking Status: Never Smoker - Medications Home Medications: Home Medications Medication Instructions Recorded Confirmed Last Taken Type metFORMIN [Glucophage] 500 mg PO BID #60 tablet 02/21/17 Unknown Rx Terbinafine HCl [Terbinafine] 30 gm TP 1XW PRN #1 tub 03/11/18 Unknown Rx metFORMIN [Glucophage] 500 mg PO BID 30 Days #60 tablet 12/21/18 Unknown Rx metFORMIN [Glucophage] 500 mg PO BID #60 tablet 04/29/19 Unknown Rx metFORMIN [Glucophage] 1,000 mg PO QDAY 30 Days #120 tab 10/06/19 Unknown Rx ED Physical Exam - General Limitations: No Limitations General appearance: alert, in no apparent distress - Head Head exam: Present: atraumatic, normocephalic - Eye Eye exam: Present: normal appearance - ENT ENT exam: Present: mucous membranes moist - Respiratory Respiratory exam: Present: normal lung sounds bilaterally. Absent: respiratory distress, wheezes, rales, rhonchi, stridor, chest wall tenderness, accessory muscle use, decreased breath sounds, prolonged expiratory - Cardiovascular Cardiovascular Exam: Present: regular rate, normal rhythm, normal heart sounds. Absent: systolic murmur, diastolic murmur, rubs, gallop - Extremities Exam Extremities exam: Absent: pedal edema - Neurological Exam Neurological exam: Present: alert, oriented X3 - Psychiatric Psychiatric exam: Present: normal affect, normal mood - Skin Skin exam: Present: warm, dry, intact ED Course Vital Signs 10/06/19 10/06/19 10/06/19 09:42 11:16 15:18 Temperature 97.5 F L Pulse Rate 79 Respiratory 20 20 Rate Blood Pressure 133/76 O2 Sat by Pulse 94 94 100 Oximetry 10/06/19 10/06/19 10/06/19 15:30 15:46 16:00 Temperature Pulse Rate 78 77 74 Respiratory 13 14 17 Rate Blood Pressure 121/46 116/79 135/84 O2 Sat by Pulse 97 100 Oximetry 10/06/19 16:16 Temperature Pulse Rate 79 Respiratory 15 Rate Blood Pressure 115/75 O2 Sat by Pulse 98 Oximetry BRIJESH score - Brijesh Score Age > 65: (0) No Aspirin use within the Past 7 Days: (0) No 3 or more CAD Risk Factors: (0) No 2 or more Angina events in past 24 hrs: (0) No Known CAD with more than 50% Stenosis: (0) No Elevated Cardiac Markers: (0) No ST Deviation Greater than 0.5mm: (0) No BRIJESH Score: 0 ED Medical Decision Making - Lab Data Result diagrams: 10/06/19 10:15 10/06/19 10:15 Lab Results 10/06/19 10/06/19 10/06/19 Range/Units 10:15 10:15 12:09 WBC 5.9 (4.5-11.0) K/mm3 RBC 4.84 (3.65-5.03) M/mm3 Hgb 14.0 (11.8-15.2) gm/dl Hct 41.8 (35.5-45.6) % MCV 86 (84-94) fl MCH 29 (28-32) pg MCHC 33 (32-34) % RDW 13.8 (13.2-15.2) % Plt Count 317 (140-440) K/mm3 Lymph % (Auto) 28.4 (13.4-35.0) % [place] % (Auto) 11.9 H (0.0-7.3) % Eos % (Auto) 2.5 (0.0-4.3) % Baso % (Auto) 0.7 (0.0-1.8) % Lymph # 1.7 (1.2-5.4) K/mm3 [place] # 0.7 (0.0-0.8) K/mm3 Eos # 0.1 (0.0-0.4) K/mm3 Baso # 0.0 (0.0-0.1) K/mm3 Seg Neutrophils % 56.5 (40.0-70.0) % Seg Neutrophils # 3.4 (1.8-7.7) K/mm3 VBG pH (7.320-7.420) Sodium 134 L (137-145) mmol/L Potassium 4.5 (3.6-5.0) mmol/L Chloride 96.7 L (98-107) mmol/L Carbon Dioxide 21 L (22-30) mmol/L Anion Gap 21 mmol/L BUN 10 (9-20) mg/dL Creatinine 0.8 (0.8-1.5) mg/dL Estimated GFR > 60 ml/min BUN/Creatinine Ratio 13 % Glucose 408 H (75-100) mg/dL POC Glucose 343 H (70-105) Calcium 9.6 (8.4-10.2) mg/dL Magnesium (1.7-2.3) mg/dL Total Bilirubin (0.1-1.2) mg/dL Direct Bilirubin (0-0.2) mg/dL Indirect Bilirubin mg/dL AST (5-40) units/L ALT (7-56) units/L Alkaline Phosphatase (35-129) units/L Total Creatine Kinase (55-170) units/L Troponin T < 0.010 (0.00-0.029) ng/mL Total Protein (6.3-8.2) g/dL Albumin (3.9-5) g/dL Albumin/Globulin Ratio % TSH (0.270-4.200) mlU/mL 10/06/19 10/06/19 10/06/19 Range/Units 13:00 13:18 13:18 WBC (4.5-11.0) K/mm3 RBC (3.65-5.03) M/mm3 Hgb (11.8-15.2) gm/dl Hct (35.5-45.6) % MCV (84-94) fl MCH (28-32) pg MCHC (32-34) % RDW (13.2-15.2) % Plt Count (140-440) K/mm3 Lymph % (Auto) (13.4-35.0) % [place] % (Auto) (0.0-7.3) % Eos % (Auto) (0.0-4.3) % Baso % (Auto) (0.0-1.8) % Lymph # (1.2-5.4) K/mm3 [place] # (0.0-0.8) K/mm3 Eos # (0.0-0.4) K/mm3 Baso # (0.0-0.1) K/mm3 Seg Neutrophils % (40.0-70.0) % Seg Neutrophils # (1.8-7.7) K/mm3 VBG pH (7.320-7.420) Sodium (137-145) mmol/L Potassium (3.6-5.0) mmol/L Chloride (98-107) mmol/L Carbon Dioxide (22-30) mmol/L Anion Gap mmol/L BUN (9-20) mg/dL Creatinine (0.8-1.5) mg/dL Estimated GFR ml/min BUN/Creatinine Ratio % Glucose (75-100) mg/dL POC Glucose (70-105) Calcium (8.4-10.2) mg/dL Magnesium 1.80 (1.7-2.3) mg/dL Total Bilirubin 0.40 (0.1-1.2) mg/dL Direct Bilirubin < 0.2 (0-0.2) mg/dL Indirect Bilirubin 0.2 mg/dL AST 19 (5-40) units/L ALT 38 (7-56) units/L Alkaline Phosphatase 76 (35-129) units/L Total Creatine Kinase 187 H (55-170) units/L Troponin T < 0.010 (0.00-0.029) ng/mL Total Protein 7.0 (6.3-8.2) g/dL Albumin 4.2 (3.9-5) g/dL Albumin/Globulin Ratio 1.5 % TSH (0.270-4.200) mlU/mL 10/06/19 10/06/19 10/06/19 Range/Units 13:18 13:18 13:48 WBC (4.5-11.0) K/mm3 RBC (3.65-5.03) M/mm3 Hgb (11.8-15.2) gm/dl Hct (35.5-45.6) % MCV (84-94) fl MCH (28-32) pg MCHC (32-34) % RDW (13.2-15.2) % Plt Count (140-440) K/mm3 Lymph % (Auto) (13.4-35.0) % [place] % (Auto) (0.0-7.3) % Eos % (Auto) (0.0-4.3) % Baso % (Auto) (0.0-1.8) % Lymph # (1.2-5.4) K/mm3 [place] # (0.0-0.8) K/mm3 Eos # (0.0-0.4) K/mm3 Baso # (0.0-0.1) K/mm3 Seg Neutrophils % (40.0-70.0) % Seg Neutrophils # (1.8-7.7) K/mm3 VBG pH 7.313 L (7.320-7.420) Sodium (137-145) mmol/L Potassium (3.6-5.0) mmol/L Chloride (98-107) mmol/L Carbon Dioxide (22-30) mmol/L Anion Gap mmol/L BUN (9-20) mg/dL Creatinine (0.8-1.5) mg/dL Estimated GFR ml/min BUN/Creatinine Ratio % Glucose (75-100) mg/dL POC Glucose 235 H (70-105) Calcium (8.4-10.2) mg/dL Magnesium (1.7-2.3) mg/dL Total Bilirubin (0.1-1.2) mg/dL Direct Bilirubin (0-0.2) mg/dL Indirect Bilirubin mg/dL AST (5-40) units/L ALT (7-56) units/L Alkaline Phosphatase (35-129) units/L Total Creatine Kinase (55-170) units/L Troponin T (0.00-0.029) ng/mL Total Protein (6.3-8.2) g/dL Albumin (3.9-5) g/dL Albumin/Globulin Ratio % TSH 2.430 (0.270-4.200) mlU/mL Vital Signs 10/06/19 10/06/19 10/06/19 09:42 11:16 15:18 Temperature 97.5 F L Pulse Rate 79 Respiratory 20 20 Rate Blood Pressure 133/76 O2 Sat by Pulse 94 94 100 Oximetry 10/06/19 10/06/19 10/06/19 15:30 15:46 16:00 Temperature Pulse Rate 78 77 74 Respiratory 13 14 17 Rate Blood Pressure 121/46 116/79 135/84 O2 Sat by Pulse 97 100 Oximetry 10/06/19 16:16 Temperature Pulse Rate 79 Respiratory 15 Rate Blood Pressure 115/75 O2 Sat by Pulse 98 Oximetry - EKG Data EKG shows normal: sinus rhythm, axis, intervals, QRS complexes, ST-T waves Rate: normal - EKG Data 10/06/19 22:35 no STEMI EKG does not appear consistent with acute pericarditis similar to previous EKGs - Radiology Data Radiology results: report reviewed CHEST 1 VIEW 10/06/2019 9:11 AM INDICATION / CLINICAL INFORMATION: Chest Pain. COMPARISON: 2 views of the chest from 04/28/2019. FINDINGS: SUPPORT DEVICES: None. HEART / MEDIASTINUM: No significant abnormality. LUNGS / PLEURA: No significant pulmonary or pleural abnormality. No pneumothorax. ADDITIONAL FINDINGS: No significant additional findings. IMPRESSION: 1. No acute abnormality of the chest. Signer Name: Higinio Dennis MD Signed: 10/06/2019 10:15 AM Workstation Name: [id number] Transcribed By: RHINA Dictated By: Higinio Dennis MD Electronically Authenticated By: Higinio Dennis MD Signed Date/Time: 10/06/19 1015 DD/ 1015 TD/TT: - Medical Decision Making Patient is a 44-year-old male presents emergency room with complaints of chest pain described as a tightness that began yesterday. He states that he has had this recurrently for several months. He denies any pain currently. He states occasionally he feels like he has palpitations. Patient states that he has been to the emergency department 4 times for this complaint but has not followed up with a apprentice painter brush or primary care physician. He denies any nausea, vomiting, diarrhea, fever, leg swelling, shortness of breath. He denies any recent travel or surgery. He states he has a past medical history of diabetes. He states that he stopped taking his metformin for a couple of months but began taking it again today. He has a non-smoker, no drug use. He states he is an occasional drinker. He denies any family cardiac history or history of DVT/PE. Vitals are normal. No abnormality on physical examination as documented in chart. EKG within normal limits, no STEMI. Labs with glucose of 408, bicarb 21, venous pH is 7.313, discussed case with Dr. Josh Trejo who recommended giving patient 2 L IV fluids insulin and that patient would be stable for discharge. Repeat blood sugar prior to discharge is 235. Chest x-ray with no acute process. PERC criteria negative for PE. Heart score is 1, BRIJESH score is 0, very low risk for cardiac event. Patient placed on chest pain pathway and his information was faxed to [facility] by certified legal secretary specialist to have close cardiology follow-up, discus sed this with patient and all results and answered questions. Discussed in detail the importance of taking metformin and the risk associated with diabetes such as loss of limb, loss of kidney function, loss of eyesight, heart disease, etc. advised pt to please take medication as prescribed. Eat a low-carb low sugar diet. Incorporate 30 minutes of daily exercise. Please follow-up with a primary care doctor. Please follow-up with a apprentice painter brush. Your information has been faxed over to [facility]. Return to the emergency room for any new or worsening symptoms. - Differential Diagnosis PE, PNA, URI, PTX, ACS, GERD, PUD, anxiety, DKA, anemia, CHF Critical care attestation.: If time is entered above; I have spent that time in minutes in the direct care of this critically ill patient, excluding procedure time. ED Disposition Clinical Impression: Chest pain Qualifiers: Chest pain type: unspecified Qualified Code(s): R07.9 - Chest pain, unspecified Diabetes Qualifiers: Diabetes mellitus type: type 2 Diabetes mellitus prison insulin use: without technician terminal and repeater use Diabetes mellitus complication status: with hyperglycemia Qu alified Code(s): E11.65 - Type 2 diabetes mellitus with hyperglycemia Disposition: TO HOME OR SELFCARE Is pt being admited?: No Does the pt Need Aspirin: No Condition: Stable Instructions: Chest Pain (ED), Diabetes Mellitus Type 2 in Adults (ED) Additional Instructions: Please take medication as prescribed. Eat a low-carb low sugar diet. Incorporate 30 minutes of daily exercise. Please follow-up with a primary care doctor. Please follow-up with a apprentice painter brush. Your information has been faxed over to [facility]. Return to the emergency room for any new or worsening symptoms. Prescriptions: metFORMIN [Glucophage] 1,000 mg PO QDAY 30 Days #120 tab Referrals: [facility] [Provider Group] - 3-5 Days JASPER HOYT MD [Staff Physician] - 3-5 Days [facility] [Outside] - 3-5 Days [facility] [Outside] - 3-5 Days [facility] [Provider Group] - 3-5 Days Forms: Work/School Release Form(ED) Time of Disposition: 15:54 Print Language: BENGALI
[2019-10-06] MEDS ORDERED: ASPIRIN 325 MG TAB PO ONE (12:36)
[2019-10-06 14:40] LABS: Alanine Aminotransferase 38 units/L (7-56); Albumin 4.2 g/dL (3.9-5)
[2019-10-06 14:52] LABS: Bilirubin,Direct < 0.2 mg/dL (0-0.2)
[2019-10-06 16:21] VITALS: BP 115/75
== END 2019-10-06 16:40 | disposition home or self-care (01) ==
LOC: ED 09:38
DX: R07.89 Other chest pain (principal); E11.65 Type 2 diabetes mellitus with hyperglycemia; Z79.899 Other long term (current) drug therapy
CPT/HCPCS: 36415; 71045; 80048; 80076; 82550; 82805; 82962; 83735; 84443; 84484; 85025; 93005; 93010; 96361; 96374; 99284; J7030; J1815

== ENCOUNTER 2020-03-05 15:39 | Emergency (ER) | payer SELFPAY ==
--- NOTE | 2020-03-05 17:18 | Event Note ---
ED Screening Note Date of service: 03/05/20 Time: 17:15 ED Screening Note: This is a 44-year-old male presents to ED with scrotum/ groin/rectal pain and swelling that worsened yesterday initially began last week. Patient states pain. Most likely manan rectal abscess This initial assessment/diagnostic orders/clinical plan/treatment(s) is/are subject to change based on patients health status, clinical progression and re- assessment by fellow clinical providers in the ED. Further treatment and workup at subsequent clinical providers discretion. Patient/guardian urged not to elope from the ED as their condition may be serious if not clinically assessed and managed. Initial orders include: acc eval
[2020-03-05] MEDS ORDERED: SODIUM CHLORIDE 0.9% 1000 ML 1,000 ML IV ONE (20:38)
[2020-03-05] MEDS ORDERED: ONDANSETRON 4 MG/2 ML INJ IV ONE (20:38)
[2020-03-05] MEDS ORDERED: MORPHINE 4 MG/1 ML INJ IV ONE (20:38)
--- NOTE | 2020-03-05 20:47 | Emergency Department Report ---
ED General Adult HPI - General Chief complaint: Skin/Abscess/Foreign Body Stated complaint: GENITAL PAIN Time Seen by Provider: 03/05/20 19:53 Source: patient Mode of arrival: Ambulatory Limitations: No Limitations - History of Present Illness Initial comments: 44-year-old -[place] male patient presents with complaints of rectal/scrotal pain and swelling x5 days. He rates his current pain as a 10/10 in severity and states it is very difficult for him to ambulate and sit. He states he has not had a bowel movement in 3 days, but denies any f ever/chills/sweats, abdominal pain, nausea/vomiting, melena/hematochezia, or history of GI infections. He does report history of diabetes that is uncontrolled and states that sugar normally runs in the 2-300s. He is somewhat compliant with his metformin per patient. He denies any dysuria/hematuri a/urinary frequency or penile discharge -: Gradual Severity scale (0 -10): 10 - Related Data Previous Rx's Medication Instructions Recorded Last Taken Type metFORMIN [Glucophage] 500 mg PO BID #60 tablet 02/21/17 Unknown Rx Terbinafine HCl [Terbinafine] 30 gm TP 1XW PRN #1 tub 03/11/18 Unknown Rx metFORMIN [Glucophage] 500 mg PO BID 30 Days #60 tablet 12/21/18 Unknown Rx metFORMIN [Glucophage] 500 mg PO BID #60 tablet 04/29/19 Unknown Rx metFORMIN [Glucophage] 1,000 mg PO QDAY 30 Days #120 tab 10/06/19 Unknown Rx Acetaminophen/Codeine [Tylenol 1 tab PO Q6H PRN #10 tab 03/06/20 Unknown Rx /Codeine # 3 tab] Clindamycin [Clindamycin CAP] 300 mg PO Q6H 10 Days #40 capsule 03/06/20 Unknown Rx Allergies Allergy/AdvReac Type Severity Reaction Status Date / Time No Known Allergies Allergy Verified 03/05/20 16:47 ED Review of Systems ROS: Stated complaint: GENITAL PAIN Other details as noted in HPI Constitutional: denies: chills, diaphoresis, fever, malaise, weakness Respiratory: denies: cough, shortness of breath Cardiovascular: denies: chest pain Gastrointestinal: constipation. denies: abdominal pain, nausea, vomiting, diarrhea, hematemesis, melena, hematochezia Genitourinary: testicular pain. denies: urgency, dysuria, frequency, hematuria Skin: denies: rash, change in color Neurological: denies: headache, weakness ED Past Medical Hx - Past Medical History Hx Diabetes: Yes - Social History Smoking Status: Never Smoker Substance Use Type: None - Medications Home Medications: Home Medications Medication Instructions Recorded Confirmed Last Taken Type metFORMIN [Glucophage] 500 mg PO BID #60 tablet 02/21/17 Unknown Rx Terbinafine HCl [Terbinafine] 30 gm TP 1XW PRN #1 tub 03/11/18 Unknown Rx metFORMIN [Glucophage] 500 mg PO BID 30 Days #60 tablet 12/21/18 Unknown Rx metFORMIN [Glucophage] 500 mg PO BID #60 tablet 04/29/19 Unknown Rx metFORMIN [Glucophage] 1,000 mg PO QDAY 30 Days #120 tab 10/06/19 Unknown Rx Acetaminophen/Codeine [Tylenol 1 tab PO Q6H PRN #10 tab 03/06/20 Unknown Rx /Codeine # 3 tab] Clindamycin [Clindamycin CAP] 300 mg PO Q6H 10 Days #40 capsule 03/06/20 Unknown Rx ED Physical Exam - General Limitations: No Limitations General appearance: alert, in no apparent distress - Head Head exam: Present: atraumatic, normocephalic - Eye Eye exam: Present: normal appearance - ENT ENT exam: Present: mucous membranes moist - Respiratory Respiratory exam: Present: normal lung sounds bilaterally. Absent: respiratory distress - Cardiovascular Cardiovascular Exam: Present: regular rate, normal rhythm. Absent: systolic murmur, diastolic murmur, rubs, gallop - GI/Abdominal GI/Abdominal exam: Present: soft, normal bowel sounds. Absent: distended, tenderness, guarding, rebound, rigid - Rectal Rectal exam: Absent: hemorrhoids (No external hemorrhoids noted) - exam: Present: scrotal swelling, other (There is moderate induration with a small opening and purulent drainage noted at the proximal scrotum and perineal area; there is significant tenderness to palpation of the area.) - Extremities Exam Extremities exam: Present: normal inspection - Back Exam Back exam: Present: normal inspection - Neurological Exam Neurological exam: Present: alert, oriented X3 - Psychiatric Psychiatric exam: Present: normal affect, normal mood - Skin Skin exam: Present: warm, dry. Absent: rash, cyanosis, diaphoretic, ecchymosis ED Course Vital Signs 03/05/20 03/06/20 16:47 03:25 Temperature 98.4 F Pulse Rate 99 H 87 Respiratory 18 17 Rate Blood Pressure 155/92 143/86 [Right] O2 Sat by Pulse 100 98 Oximetry - I & D Genitals Type of Procedure: Simple Site: Proximal scrotum/perineum Blade Size: 11 I & D Procedure: betadine prep, sterile drapes applied, sterile dressing applied, gauze wick placed Progress: Patient anesthetized using 10 cc of lidocaine 1% without epi. Minimal bleeding occurred. Mild purulent drainage obtained from wound and sent for culture. Patient tolerated procedure well without any immediate complications. ED Medical Decision Making - Lab Data Result diagrams: 03/05/20 20:46 03/05/20 20:46 Lab Results 03/05/20 03/05/20 03/06/20 Range/Units 20:46 20:46 00:05 WBC 9.2 (4.5-11.0) K/mm3 RBC 5.01 (3.65-5.03) M/mm3 Hgb 14.6 (11.8-15.2) gm/dl Hct 42.8 (35.5-45.6) % MCV 86 (84-94) fl MCH 29 (28-32) pg MCHC 34 (32-34) % RDW 13.7 (13.2-15.2) % Plt Count 293 (140-440) K/mm3 Lymph % (Auto) 30.9 (13.4-35.0) % [place] % (Auto) 13.3 H (0.0-7.3) % Eos % (Auto) 1.9 (0.0-4.3) % Baso % (Auto) 0.5 (0.0-1.8) % Lymph # 2.8 (1.2-5.4) K/mm3 [place] # 1.2 H (0.0-0.8) K/mm3 Eos # 0.2 (0.0-0.4) K/mm3 Baso # 0.0 (0.0-0.1) K/mm3 Seg Neutrophils % 53.4 (40.0-70.0) % Seg Neutrophils # 4.9 (1.8-7.7) K/mm3 Sodium 137 (137-145) mmol/L Potassium 4.4 (3.6-5.0) mmol/L Chloride 96.2 L (98-107) mmol/L Carbon Dioxide 26 (22-30) mmol/L Anion Gap 19 mmol/L BUN 11 (9-20) mg/dL Creatinine 0.9 (0.8-1.3) mg/dL Estimated GFR > 60 ml/min BUN/Creatinine Ratio 12 % Glucose 326 H (75-100) mg/dL Calcium 10.1 (8.4-10.2) mg/dL Total Bilirubin 0.50 (0.1-1.2) mg/dL Direct Bilirubin < 0.2 (0-0.2) mg/dL Indirect Bilirubin 0.3 mg/dL AST 14 (5-40) units/L ALT 33 (7-56) units/L Alkaline Phosphatase 79 (35-129) units/L Total Protein 7.6 (6.3-8.2) g/dL Albumin 4.6 (3.9-5) g/dL Albumin/Globulin Ratio 1.5 % Urine Color Straw (Yellow) Urine Turbidity Clear (Clear) Urine pH 6.0 (5.0-7.0) Ur Specific Kimberly 1.003 (1.003-1.030) Urine Protein <15 mg/dl (Negative) mg/dL Urine Glucose (UA) >=500 (Negative) mg/dL Urine Ketones 20 (Negative) mg/dL Urine Blood Neg (Negative) Urine Nitrite Neg (Negative) Urine Bilirubin Neg (Negative) Urine Urobilinogen < 2.0 (<2.0) mg/dL Ur Leukocyte Esterase Neg (Negative) Urine WBC (Auto) 1.0 (0.0-6.0) /HPF Urine RBC (Auto) 1.0 (0.0-6.0) /HPF U Epithel Cells (Auto) < 1.0 (0-13.0) /HPF - Radiology Data Radiology results: report reviewed TESTICULAR ULTRASOUND HISTORY: Perineal swelling. FINDINGS: FINDINGS: Right testicle measures 5.2 x 2.4 cm. Left testicle measures 4.7 x 2.9 cm. No testicular lesion is present. Flow is symmetric. The epididymides are unremarkable other than a 6 mm left epididymal cyst. A small left hydrocele is present. A complex area at the perineum measures 1.6 x 0.6 x 2.2 cm. IMPRESSION: 1. Testicles unremarkable. 2. Small left epididymal cyst. 3. Probable small perineal abscess. CT imaging of pelvis 100 cc Omnipaque 300 milligrams percent IV nonionic contrast infusion was performed. Imaging was presented in the axial, coronal and sagittal imaging planes.All CT scans at this location are performed using CT dose reduction for ALARA by means of automated exposure control. FINDINGS: Minimum reticulation of fat involving the base of the scrotum without evidence of an abscess Signer Name: Vishnu Rodriguez MD Signed: 03/05/2020 10:38 PM Workstation Name: [id number] Addendum Transcribed By: MITCHELL Addendum Dictated By: Vishnu Rodriguez MD Addendum Electronically Authenticated By: Vishnu Rodriguez MD Addendum Signed Date/Time: 03/05/202237 DD/ TD/TT: / CLINICAL DATA: scroat/perineum abscess, hx of diabetes TECHNICAL DATA: CT imaging of pelvis without IV nonionic contrast infusion was performed. Imaging was presented in the axial, coronal and sagittal imaging planes.All CT scans at this location are performed using CT dose reduction for ALARA by means of automated exposure control. FINDINGS Soft tissues are normal. Bony structures are intact. Portion of the gastrointestinal tract that is imaged and is within normal limits IMPRESSION: Normal CT of the pelvis. No evidence of a perineum abscess - Medical Decision Making 44-year-old -[place] male patient presents with complaints of rectal/scrotal pain and swelling x5 days. Abscess of the perineum noted with induration and opening with purulent drainage. Discussed with Dr. Calderon- recommended CT pelvis with contrast given history of diabetes to rule out necrotizing fasciitis/Brittany's gangrene. CT pelvis was negative for any acute findings however I spoke with the radiologist who suggested an ultrasound of the scrotum be performed. Ultrasound showed probable small perennial abscess. CBC and CMP are normal. Abscess was drained and mild purulent drainage was obtained and sent for culture. Patient was given a dose of clindamycin here in the ED and will discharge home on a prescription for Clinda. His pain is at 0 currently, he is well-appearing, stable for discharge home. Patient to return to the ED in 2 days for packing removal and wound recheck. Strict return precautions were discussed in detail with patient who verbalizes understanding. Critical care attestation.: If time is entered above; I have spent that time in minutes in the direct care of this critically ill patient, excluding procedure time. ED Disposition Clinical Impression: Scrotal abscess Disposition: DC-01 TO HOME OR SELFCARE Is pt being admited?: No Condition: Stable Instructions: Abscess Incision and Drainage (ED) Additional Instructions: Return to the emergency department in 2 days for a wound recheck and packing removal Prescriptions: Clindamycin [Clindamycin CAP] 300 mg PO Q6H 10 Days #40 capsule Acetaminophen/Codeine [Tylenol /Codeine # 3 tab] 1 tab PO Q6H PRN #10 tab PRN Reason: Pain , Severe (7-10) Referrals: JASPER HOYT MD [Staff Physician] - 3-5 Days (diabetes ) Forms: Work/School Release Form(ED)
[2020-03-05 21:18] LABS: Basophils % (Auto) 0.5 % (0.0-1.8); Eosinophils # (Auto) 0.2 K/mm3 (0.0-0.4); Eosinophils % (Auto) 1.9 % (0.0-4.3); Hematocrit 42.8 % (35.5-45.6); Hemoglobin 14.6 gm/dl (11.8-15.2); Lymphocytes # (Auto) 2.8 K/mm3 (1.2-5.4); Lymphocytes % (Auto) 30.9 % (13.4-35.0); Mean Corpuscular HGB Conc 34 % (32-34); Mean Corpuscular Volume 86 fl (84-94); Monocytes # (Auto) 1.2 K/mm3 (0.0-0.8); Monocytes % (Auto) 13.3 % (0.0-7.3); Platelet Count 293 K/mm3 (140-440); Red Blood Count 5.01 M/mm3 (3.65-5.03); Red Cell Distribution Width 13.7 % (13.2-15.2)
[2020-03-05 21:43] LABS: Alanine Aminotransferase 33 units/L (7-56); Albumin 4.6 g/dL (3.9-5); BUN/Creatinine Ratio 12; Blood Urea Nitrogen 11 mg/dL (9-20); Calcium 10.1 mg/dL (8.4-10.2); Hemolysis Index 9
[2020-03-05 21:49] LABS: Bilirubin,Direct < 0.2 mg/dL (0-0.2)
--- NOTE | 2020-03-05 22:22 | Cat Scan Report ---
CLINICAL DATA: scroat/perineum abscess, hx of diabetes TECHNICAL DATA: CT imaging of pelvis without IV nonionic contrast infusion was performed. Imaging was presented in th e axial, coronal and sagittal imaging planes.All CT scans at this location are performed using CT dos e reduction for ALARA by means of automated exposure control. FINDINGS Soft tissues are normal. Bony structures are intact. Portion of the gastrointestinal tract that is im aged and is within normal limits IMPRESSION: Normal CT of the pelvis. No evidence of a perineum abscess Signer Name: Vishnu Rodriguez MD Signed: 03/05/2020 10:17 PM Workstation Name: [id number]
[2020-03-05] MEDS ORDERED: KETOROLAC 30 MG/1 ML INJ IV ONE (23:24)
[2020-03-06 00:34] LABS: Bilirubin,Urine NEG (Negative); Blood,Urine NEG (Negative); Color,Urine Straw (Yellow); Protein,Urine <15 mg/dL mg/dL (Negative); Urobilinogen,Urine < 2.0 mg/dL (<2.0)
--- NOTE | 2020-03-06 01:46 | Ultrasound Report ---
TESTICULAR ULTRASOUND HISTORY: Perineal swelling. FINDINGS: FINDINGS: Right testicle measures 5.2 x 2.4 cm. Left testicle measures 4.7 x 2.9 cm. No testicular le charlee is present. Flow is symmetric. The epididymides are unremarkable other than a 6 mm left epididymal cyst. A small left hydrocele is p resent. A complex area at the perineum measures 1.6 x 0.6 x 2.2 cm. IMPRESSION: 1. Testicles unremarkable. 2. Small left epididymal cyst. 3. Probable small perineal abscess. Signer Name: Alexandr Vaca MD Signed: 03/06/2020 1:41 AM Workstation Name: [id number]
[2020-03-06] MEDS ORDERED: LIDOCAINE (1%) 10 MG/1 ML VIAL 20 ML MDV INFILTRATI ONE (01:51)
[2020-03-06 06:45] VITALS: BP 143/86
== END 2020-03-06 03:25 | disposition home or self-care (01) ==
LOC: ED 15:39
DX: N49.2 Inflammatory disorders of scrotum (principal); E11.9 Type 2 diabetes mellitus without complications; Z79.899 Other long term (current) drug therapy
CPT/HCPCS: 10060; 36415; 72193; 80048; 80076; 81001; 85025; 93975; 96365; 96375; 99284; J1885; J2270; J2405; J7030; Q9967

== ENCOUNTER 2020-04-12 17:43 | Emergency (ER) | payer SELFPAY ==
--- NOTE | 2020-04-12 18:05 | Emergency Department Report ---
Blank Doc - Documentation Documentation: 44-year-old male that was sent by PCP for keytones in urine with chest pains and chest tightness. This initial assessment/diagnostic orders/clinical plan/treatment(s) is/are subject to change based on patient's health status, clinical progression and re- assessment by fellow clinical providers in the ED. Further treatment and workup at subsequent clinical providers discretion. Patient/guardians urged not to elope from the ED as their condition may be serious if not clinically assessed and managed. Initial orders include: 1- Patient sent to MAIN ED for further evaluation and treatment 2- cardiac workup
[2020-04-12 18:39] LABS: Basophils # (Auto) 0.1 K/mm3 (0.0-0.1); Basophils % (Auto) 1.3 % (0.0-1.8); Eosinophils # (Auto) 0.4 K/mm3 (0.0-0.4); Eosinophils % (Auto) 4.4 % (0.0-4.3); Hematocrit 43.9 % (35.5-45.6); Hemoglobin 15.1 gm/dl (11.8-15.2); Lymphocytes # (Auto) 2.9 K/mm3 (1.2-5.4); Lymphocytes % (Auto) 32.7 % (13.4-35.0); Mean Corpuscular HGB Conc 34 % (32-34); Mean Corpuscular Volume 85 fl (84-94); Monocytes # (Auto) 1.1 K/mm3 (0.0-0.8); Monocytes % (Auto) 12.8 % (0.0-7.3); Platelet Count 296 K/mm3 (140-440); Red Blood Count 5.14 M/mm3 (3.65-5.03); Red Cell Distribution Width 13.6 % (13.2-15.2)
--- NOTE | 2020-04-12 18:44 | XRay Report ---
CHEST PA AND LATERAL VIEWS INDICATION: Chest Pain. COMPARISON: 10/06/2019 FINDINGS: Support devices: None. Heart: Within normal limits. Lungs/Pleura: No acute pulmonary or pleural findings. IMPRESSION: 1. No acute findings. Signer Name: Abrahan Olmedo MD Signed: 04/12/2020 6:39 PM Workstation Name: [id number]
[2020-04-12 18:48] LABS: INR 0.94 (0.87-1.13); Partial Thromboplastin Time 24.8 Sec. (24.2-36.6)
[2020-04-12 18:59] LABS: Alanine Aminotransferase 64 units/L (7-56); Albumin 4.6 g/dL (3.9-5); BUN/Creatinine Ratio 13; Blood Urea Nitrogen 10 mg/dL (9-20); Calcium 9.9 mg/dL (8.4-10.2); Hemolysis Index 34
--- NOTE | 2020-04-13 00:24 | Emergency Department Report ---
ED General Adult HPI - General Chief complaint: Medical Clearance Stated complaint: DIABETES RELATED Time Seen by Provider: 04/12/20 18:04 Source: patient Mode of arrival: Ambulatory Limitations: No Limitations - History of Present Illness Initial comments: Patient is a 44-year-old -[place] male with a history of inx-ygnalzy-sehptjbjx diabetes who presents to the ED for evaluation after being told by his primary care physician to come to the ED for evaluation because of ketonuria in his urine earlier. Patient states that he has been taking metformin for his kmz-hdhhnds-gpbopjpij diabetes and had this changed to Januvia and insulin by his primary care physician about 8 hours ago. Patient denies chest pain, shortness of breath, abdominal pain, nausea, vomiting, headache, dizziness, syncope, dysuria, urinary frequency and urgency, hematuria, fever and chills or low back pain. MD Complaint: Medical clearance after ketones detected in the urine -: Sudden, hour(s) (8) Location: pelvis Radiation: non-radiation Severity scale (0 -10): 0 Consistency: intermittent Improves with: none Worsens with: none Associated Symptoms: denies other symptoms. denies: confusion, chest pain, cough, diaphoresis, fever/chills, headaches, loss of appetite, malaise, nausea/vomiting, rash, seizure, shortness of breath, syncope, other Treatments Prior to Arrival: none - Related Data Previous Rx's Medication Instructions Recorded Last Taken Type metFORMIN [Glucophage] 500 mg PO BID #60 tablet 02/21/17 Unknown Rx Terbinafine HCl [Terbinafine] 30 gm TP 1XW PRN #1 tub 03/11/18 Unknown Rx metFORMIN [Glucophage] 500 mg PO BID 30 Days #60 tablet 12/21/18 Unknown Rx metFORMIN [Glucophage] 500 mg PO BID #60 tablet 04/29/19 Unknown Rx metFORMIN [Glucophage] 1,000 mg PO QDAY 30 Days #120 tab 10/06/19 Unknown Rx Acetaminophen/Codeine [Tylenol 1 tab PO Q6H PRN #10 tab 03/06/20 Unknown Rx /Codeine # 3 tab] Clindamycin [Clindamycin CAP] 300 mg PO Q6H 10 Days #40 capsule 03/06/20 Unknown Rx Allergies Allergy/AdvReac Type Severity Reaction Status Date / Time No Known Allergies Allergy Verified 03/05/20 16:47 ED Review of Systems ROS: Stated complaint: DIABETES RELATED Other details as noted in HPI Constitutional: denies: chills, fever Eyes: denies: eye pain, eye discharge, vision change ENT: denies: ear pain, throat pain Respiratory: denies: cough, shortness of breath, wheezing Cardiovascular: denies: chest pain, palpitations Endocrine: no symptoms reported Gastrointestinal: denies: abdominal pain, nausea, diarrhea Genitourinary: other (Ketonuria). denies: urgency, dysuria Musculoskeletal: denies: back pain, joint swelling, arthralgia Skin: denies: rash, lesions Neurological: denies: headache, weakness, paresthesias Psychiatric: denies: anxiety, depression Hematological/Lymphatic: denies: easy bleeding, easy bruising ED Past Medical Hx - Past Medical History Previous Medical History?: Yes Hx Diabetes: Yes - Surgical History Past Surgical History?: No - Social History Smoking Status: Never Smoker Substance Use Type: None - Medications Home Medications: Home Medications Medication Instructions Recorded Confirmed Last Taken Type metFORMIN [Glucophage] 500 mg PO BID #60 tablet 02/21/17 Unknown Rx Terbinafine HCl [Terbinafine] 30 gm TP 1XW PRN #1 tub 03/11/18 Unknown Rx metFORMIN [Glucophage] 500 mg PO BID 30 Days #60 tablet 12/21/18 Unknown Rx metFORMIN [Glucophage] 500 mg PO BID #60 tablet 04/29/19 Unknown Rx metFORMIN [Glucophage] 1,000 mg PO QDAY 30 Days #120 tab 10/06/19 Unknown Rx Acetaminophen/Codeine [Tylenol 1 tab PO Q6H PRN #10 tab 03/06/20 Unknown Rx /Codeine # 3 tab] Clindamycin [Clindamycin CAP] 300 mg PO Q6H 10 Days #40 capsule 03/06/20 Unknown Rx ED Physical Exam - General Limitations: No Limitations General appearance: alert, in no apparent distress - Head Head exam: Present: atraumatic, normocephalic, normal inspection - Eye Eye exam: Present: normal appearance, PERRL, EOMI Pupils: Present: normal accommodation - ENT ENT exam: Present: normal exam, normal orophraynx, mucous membranes moist, TM's normal bilaterally, normal external ear exam - Neck Neck exam: Present: normal inspection, full ROM - Respiratory Respiratory exam: Present: normal lung sounds bilaterally. Absent: respiratory distress, wheezes, rales, stridor, chest wall tenderness, accessory muscle use, decreased breath sounds, prolonged expiratory - Cardiovascular Cardiovascular Exam: Present: regular rate, normal rhythm, normal heart sounds. Absent: systolic murmur, diastolic murmur, rubs, gallop - GI/Abdominal GI/Abdominal exam: Present: soft, normal bowel sounds. Absent: tenderness, guarding, rebound, hyperactive bowel sounds, hypoactive bowel sounds - Extremities Exam Extremities exam: Present: normal inspection, full ROM, normal capillary refill - Back Exam Back exam: Present: normal inspection, full ROM. Absent: tenderness, CVA tenderness (R), CVA tenderness (L), muscle spasm, paraspinal tenderness, vertebral tenderness - Neurological Exam Neurological exam: Present: alert, oriented X3, CN II-XII intact, normal gait, reflexes normal - Psychiatric Psychiatric exam: Present: normal affect, normal mood - Skin Skin exam: Present: warm, dry, intact, normal color. Absent: rash ED Course Vital Signs 04/12/20 18:01 Temperature 97.9 F Pulse Rate 97 H Respiratory 18 Rate Blood Pressure 146/91 O2 Sat by Pulse 97 Oximetry ED Medical Decision Making - Lab Data Result diagrams: 04/12/20 18:22 04/12/20 18:22 - Radiology Data Radiology results: report reviewed, image reviewed Findings [address] [address] XRay Report Signed Patient: PILAR SPARKS MR#: [id number] : 1975 Acct:[id number] Age/Sex: 44 / M ADM Date: 04/12/20 Loc: ED Attending Dr: Ordering Physician: PEDRO LUIS BRAVO NP Date of Service: 04/12/20 Procedure(s): XR chest routine 2V Accession Number(s): [id number] cc: PEDRO LUIS BRAVO NP Fluoro Time In Minutes: CHEST PA AND LATERAL VIEWS INDICATION: Chest Pain. COMPARISON: 10/06/2019 FINDINGS: Support devices: None. Heart: Within normal limits. Lungs/Pleura: No acute pulmonary or pleural findings. IMPRESSION: 1. No acute findings. Signer Name: Abrahan Olmedo MD Signed: 04/12/2020 6:39 PM Workstation Name: [id number] Transcribed By: SW Dictated By: Abrahan Olmedo MD Electronically Authenticated By: Abrahan Olmdeo MD Signed Date/Time: 04/12/201838 DD/ 37 TD/TT: - Medical Decision Making This is a 44-year-old -[place] male with a history of pup-mfuaeku-imtjxbafh diabetes who presents to the ED for evaluation after being told by his primary care physician to come to the ED for evaluation because of ketonuria in his urine earlier. Patient states that he has been taking metformin for his rqi-ingtlty-aqngqhytm diabetes and had this changed to Januvia and insulin by his primary care physician about 8 hours ago. EKG shows normal sinus rhythm with a ventricular rate of [address] or T wave abnormalities. Chest x-ray shows no acute cardiopulmonary abnormalities or pneumonitis. In the ED, patient is alert and oriented x3 and is not in distress with normal vital signs. Lab test results were reviewed and are all nonactiona ble. Patient was discharged home and advised to continue taking his medications for diabetes and to follow-up with his primary care physician in 5 to 7 days for reevaluation or return to the ED immediately if symptoms get worse. - Differential Diagnosis Hyperglycemia; DKA; dehydration; CLARA Critical care attestation.: If time is entered above; I have spent that time in minutes in the direct care of this critically ill patient, excluding procedure time. ED Disposition Clinical Impression: Hyperglycemia due to type 2 diabetes mellitus Qualifiers: Diabetes mellitus assisted insulin use: without assisted use Qualified Code(s): E11.65 - Type 2 diabetes mellitus with hyperglycemia Disposition: DC-01 TO HOME OR SELFCARE Is pt being admited?: No Does the pt Need Aspirin: No Condition: Stable Instructions: Diabetes Mellitus Type 2 in Adults (ED) Additional Instructions: Take your regular medications as advised, drink plenty of fluids and follow-up with your primary care physician in 7 to 10 days for reevaluation. Referrals: [facility] [Provider Group] - 3-5 Days Forms: Work/School Release Form(ED) Time of Disposition: 00:07 Print Language: CANADIAN
[2020-04-13 01:29] VITALS: BP 140/80
== END 2020-04-13 01:29 | disposition home or self-care (01) ==
LOC: ED 17:43
DX: E11.65 Type 2 diabetes mellitus with hyperglycemia (principal); Z79.899 Other long term (current) drug therapy
CPT/HCPCS: 36415; 71046; 80053; 82962; 84484; 85025; 85610; 85730; 93005

== ENCOUNTER 2020-04-26 17:52 | Emergency (ER) | payer SELFPAY ==
[2020-04-26 17:57] VITALS: BP 125/72
--- NOTE | 2020-04-26 20:24 | Emergency Department Report ---
ED Male HPI - General Chief complaint: Urogenital-Male Stated complaint: poss std Time Seen by Provider: 04/26/20 20:20 Source: patient Mode of arrival: Ambulatory Limitations: No Limitations - History of Present Illness Initial comments: Patient is a 44-year-old male who presents emergency room with complaints of itching and burning to the pubic and testicle region that began yesterday. He states that he used Willson hair removal in this region and began to experience the symptoms shortly after. He states there was a lot of burning with applying the nare. He denies any testicular pain, dysuria, penile discharge, fever, nausea, vomiting, diarrhea. Has a past medical history of diabetes. No allergies medications. - Related Data Previous Rx's Medication Instructions Recorded Last Taken Type metFORMIN [Glucophage] 500 mg PO BID #60 tablet 02/21/17 Unknown Rx Terbinafine HCl [Terbinafine] 30 gm TP 1XW PRN #1 tub 03/11/18 Unknown Rx metFORMIN [Glucophage] 500 mg PO BID 30 Days #60 tablet 12/21/18 Unknown Rx metFORMIN [Glucophage] 500 mg PO BID #60 tablet 04/29/19 Unknown Rx metFORMIN [Glucophage] 1,000 mg PO QDAY 30 Days #120 tab 10/06/19 Unknown Rx Acetaminophen/Codeine [Tylenol 1 tab PO Q6H PRN #10 tab 03/06/20 Unknown Rx /Codeine # 3 tab] Clindamycin [Clindamycin CAP] 300 mg PO Q6H 10 Days #40 capsule 03/06/20 Unknown Rx Clotrimazole [Clotrimazole AF] 1 applicatio TP BID #1 cream..g. 04/26/20 Unknown Rx Neomycin/Bacitracin/Polymyxinb 1 applicatio TP BID #1 oint...g. 04/26/20 Unknown Rx [Triple Antibiotic Ointment] Allergies Allergy/AdvReac Type Severity Reaction Status Date / Time peanut Allergy Itching Verified 04/26/20 17:54 all fruit but bananas and Allergy Itching Uncoded 04/26/20 17:54 oranges ED Review of Systems ROS: Stated complaint: poss std Other details as noted in HPI Comment: All other systems reviewed and negative ED Past Medical Hx - Past Medical History Previous Medical History?: Yes Hx Diabetes: Yes - Surgical History Past Surgical History?: No - Social History Smoking Status: Never Smoker Substance Use Type: None - Medications Home Medications: Home Medications Medication Instructions Recorded Confirmed Last Taken Type metFORMIN [Glucophage] 500 mg PO BID #60 tablet 02/21/17 Unknown Rx Terbinafine HCl [Terbinafine] 30 gm TP 1XW PRN #1 tub 03/11/18 Unknown Rx metFORMIN [Glucophage] 500 mg PO BID 30 Days #60 tablet 12/21/18 Unknown Rx metFORMIN [Glucophage] 500 mg PO BID #60 tablet 04/29/19 Unknown Rx metFORMIN [Glucophage] 1,000 mg PO QDAY 30 Days #120 tab 10/06/19 Unknown Rx Acetaminophen/Codeine [Tylenol 1 tab PO Q6H PRN #10 tab 03/06/20 Unknown Rx /Codeine # 3 tab] Clindamycin [Clindamycin CAP] 300 mg PO Q6H 10 Days #40 capsule 03/06/20 Unknown Rx Clotrimazole [Clotrimazole AF] 1 applicatio TP BID #1 cream..g. 04/26/20 Unknown Rx Neomycin/Bacitracin/Polymyxinb 1 applicatio TP BID #1 oint...g. 04/26/20 Unknown Rx [Triple Antibiotic Ointment] ED Physical Exam - General Limitations: No Limitations General appearance: alert, in no apparent distress - Head Head exam: Present: atraumatic, normocephalic - Eye Eye exam: Present: normal appearance - ENT ENT exam: Present: mucous membranes moist - Respiratory Respiratory exam: Absent: respiratory distress, accessory muscle use - exam: Present: other (subeditor: rosa m de la torre, MANAGER OF DEVELOPMENT, there is erythema and small papules present to the mons pubis and scrotum, no ulcerations, skin is dry and irritated, no induration or fluctuance, no testicular ttp, no scrotal edema, normal testicular lie, normal cremasteric reflex) - Neurological Exam Neurological exam: Present: alert, oriented X3 - Psychiatric Psychiatric exam: Present: normal affect, normal mood - Skin Skin exam: Present: warm, dry ED Course Vital Signs 04/26/20 17:55 Temperature 98.5 F Pulse Rate 93 H Respiratory 18 Rate Blood Pressure 125/72 [Right] O2 Sat by Pulse 97 Oximetry ED Medical Decision Making - Medical Decision Making Patient is a 44-year-old male who presents emergency room with complaints of itching and burning to the pubic and testicle region that began yesterday. He states that he used Willson hair removal in this region and began to experience the symptoms shortly after. He states there was a lot of burning with applying the nare. He denies any testicular pain, dysuria, penile discharge, fever, nausea, vomiting, diarrhea. Has a past medical history of diabetes. No allergies medications. Vitals are normal. On exam:subeditor: rosa m de la torre, MANAGER OF DEVELOPMENT, there is erythema and small papules present to the mons pubis and scrotum, no ulcerations, skin is dry and irritated, no induration or fluctuance, no testicular ttp, no scrotal edema, normal testicular lie, normal cremasteric reflex. Examination appears most consistent with irritant derm from the Willson hair removal. Patient given prescription for clotrimazole and triple antibiotic ointment. Advised patient Please use medications as prescribed. Please separate the ointments by one hour. Follow-up with a primary care doctor. Please do not use Willson in this area. please do not shave in this area. Return to emergency room for any new or worsening symptoms. Critical care attestation.: If time is entered above; I have spent that time in minutes in the direct care of this critically ill patient, excluding procedure time. ED Disposition Clinical Impression: Irritant dermatitis Disposition: DC-01 TO HOME OR SELFCARE Is pt being admited?: No Does the pt Need Aspirin: No Condition: Stable Instructions: Contact Dermatitis (ED) Additional Instructions: Please use medications as prescribed. Please separate the ointments by one hour. Follow-up with a primary care doctor. Please do not use Willson in this area. please do not shave in this area. Return to emergency room for any new or worsening symptoms. Prescriptions: Clotrimazole [Clotrimazole AF] 1 applicatio TP BID #1 cream..g. Neomycin/Bacitracin/Polymyxinb [Triple Antibiotic Ointment] 1 applicatio TP BID #1 oint...g. Referrals: JASPER HOYT MD [Staff Physician] - 2-3 Days [facility] [Provider Group] - 2-3 Days Time of Disposition: 20:24 Print Language: GREEK
== END 2020-04-26 21:00 | disposition home or self-care (01) ==
LOC: ED 17:52
DX: L24.9 Irritant contact dermatitis, unspecified cause (principal); E11.9 Type 2 diabetes mellitus without complications; Z79.899 Other long term (current) drug therapy; Z91.018 Allergy to other foods; Z91.010 Allergy to peanuts
CPT/HCPCS: 99281

== ENCOUNTER 2020-07-18 08:02 | Emergency (ER) | payer SELFPAY ==
[2020-07-18 08:11] VITALS: BP 152/83
--- NOTE | 2020-07-18 08:16 | Event Note ---
ED Screening Note Date of service: 07/18/20 Time: 08:15 ED Screening Note: Patient complains of ketones in his urine, dysuria, and penile discharge for 3 days History of diabetes POC BG 360 This initial assessment/diagnostic orders/clinical plan/treatment(s) is/are subject to change based on patients health status, clinical progression and re- assessment by fellow clinical providers in the ED. Further treatment and workup at subsequent clinical providers discretion. Patient/guardian urged not to elope from the ED as their condition may be serious if not clinically assessed and managed. Initial orders include: labs
[2020-07-18 08:49] LABS: Bilirubin,Urine NEG (Negative); Blood,Urine NEG (Negative); Color,Urine Straw (Yellow); Protein,Urine <15 mg/dL mg/dL (Negative); Urobilinogen,Urine < 2.0 mg/dL (<2.0); WBC,Urine < 1.0 /HPF (0.0-6.0)
[2020-07-18 08:50] LABS: RBC,Urine < 1.0 /HPF (0.0-6.0)
[2020-07-18 09:11] LABS: Eosinophils # (Auto) 0.3 K/mm3 (0.0-0.4); Eosinophils % (Auto) 4.3 % (0.0-4.3); Hematocrit 43.8 % (35.5-45.6); Hemoglobin 14.8 gm/dl (11.8-15.2); Lymphocytes % (Auto) 25.7 % (13.4-35.0); Mean Corpuscular HGB Conc 34 % (32-34); Mean Corpuscular Volume 84 fl (84-94); Monocytes # (Auto) 0.8 K/mm3 (0.0-0.8); Monocytes % (Auto) 9.9 % (0.0-7.3); Platelet Count 307 K/mm3 (140-440); Red Blood Count 5.19 M/mm3 (3.65-5.03); Red Cell Distribution Width 13.5 % (13.2-15.2)
[2020-07-18 09:12] LABS: Basophils % (Auto) 0.5 % (0.0-1.8)
[2020-07-18 09:24] LABS: Alanine Aminotransferase 59 units/L (7-56); Albumin 4.5 g/dL (3.9-5); BUN/Creatinine Ratio 14; Blood Urea Nitrogen 13 mg/dL (9-20); Calcium 9.6 mg/dL (8.4-10.2); Hemolysis Index 5
[2020-07-18] MEDS ORDERED: LIDOCAINE-MPF (1%) 10 MG/1 ML VIAL 5 ML INFILTRATI ONE (10:40)
[2020-07-18] MEDS ORDERED: SODIUM CHLORIDE 0.9% 1000 ML 1,000 ML IV ONE (10:40)
[2020-07-18] MEDS ORDERED: INSULIN REGULAR, HUMAN 100 UNIT/ML 3ML VIAL IV ONE (10:40)
[2020-07-18] MEDS ORDERED: INSULIN REGULAR, HUMAN 100 UNITS/1 ML ONE (11:00)
--- NOTE | 2020-07-18 12:10 | Emergency Department Report ---
ED General Adult HPI - General Chief complaint: Urogenital-Male Stated complaint: POSS STD Time Seen by Provider: 07/18/20 08:14 Source: patient Mode of arrival: Ambulatory Limitations: No Limitations - History of Present Illness Initial comments: Patient is a 44-year-old male who presents emergency room stating he was sent by the [facility] due to ketones in the urine. He states that he has been off of his Janumet for 3 weeks. He states that the [facility] gave him a refill of his janumet yesterday. He states that he is also been having dysuria for 3 days and white penile discharge. He states he is sexually active without protection. He reports that his girlfriend states that she has a yeast infection. He states he is now concerned he has a yeast infection. He denies any itching, abdominal pain, back pain, fever, nausea, vomiting, diarrhea, urinary retention, hematuria, pain or swelling in the testicles. He denies any other past medical history except for his diabetes. He denies any medication allergies. - Related Data Previous Rx's Medication Instructions Recorded Last Taken Type metFORMIN [Glucophage] 500 mg PO BID #60 tablet 02/21/17 Unknown Rx Terbinafine HCl [Terbinafine] 30 gm TP 1XW PRN #1 tub 03/11/18 Unknown Rx metFORMIN [Glucophage] 500 mg PO BID 30 Days #60 tablet 12/21/18 Unknown Rx metFORMIN [Glucophage] 500 mg PO BID #60 tablet 04/29/19 Unknown Rx metFORMIN [Glucophage] 1,000 mg PO QDAY 30 Days #120 tab 10/06/19 Unknown Rx Acetaminophen/Codeine [Tylenol 1 tab PO Q6H PRN #10 tab 03/06/20 Unknown Rx /Codeine # 3 tab] Clindamycin [Clindamycin CAP] 300 mg PO Q6H 10 Days #40 capsule 03/06/20 Unknown Rx Clotrimazole [Clotrimazole AF] 1 applicatio TP BID #1 cream..g. 04/26/20 Unknown Rx Neomycin/Bacitracin/Polymyxinb 1 applicatio TP BID #1 oint...g. 04/26/20 Unknown Rx [Triple Antibiotic Ointment] Doxycycline Hyclate [Doxycycline 100 mg PO BID 7 Days #14 tab 07/18/20 Unknown Rx Hyclate TAB] Fluconazole (Nf) [Diflucan TAB] 150 mg PO ONCE #1 tablet 07/18/20 Unknown Rx Allergies Allergy/AdvReac Type Severity Reaction Status Date / Time peanut Allergy Itching Verified 04/26/20 17:54 all fruit but bananas and Allergy Itching Uncoded 04/26/20 17:54 oranges ED Review of Systems ROS: Stated complaint: POSS STD Other details as noted in HPI Comment: All other systems reviewed and negative ED Past Medical Hx - Past Medical History Hx Diabetes: Yes - Social History Smoking Status: Current Every Day Smoker - Medications Home Medications: Home Medications Medication Instructions Recorded Confirmed Last Taken Type metFORMIN [Glucophage] 500 mg PO BID #60 tablet 02/21/17 Unknown Rx Terbinafine HCl [Terbinafine] 30 gm TP 1XW PRN #1 tub 03/11/18 Unknown Rx metFORMIN [Glucophage] 500 mg PO BID 30 Days #60 tablet 12/21/18 Unknown Rx metFORMIN [Glucophage] 500 mg PO BID #60 tablet 04/29/19 Unknown Rx metFORMIN [Glucophage] 1,000 mg PO QDAY 30 Days #120 tab 10/06/19 Unknown Rx Acetaminophen/Codeine [Tylenol 1 tab PO Q6H PRN #10 tab 03/06/20 Unknown Rx /Codeine # 3 tab] Clindamycin [Clindamycin CAP] 300 mg PO Q6H 10 Days #40 capsule 03/06/20 Unknown Rx Clotrimazole [Clotrimazole AF] 1 applicatio TP BID #1 cream..g. 04/26/20 Unknown Rx Neomycin/Bacitracin/Polymyxinb 1 applicatio TP BID #1 oint...g. 04/26/20 Unkno wn Rx [Triple Antibiotic Ointment] Doxycycline Hyclate [Doxycycline 100 mg PO BID 7 Days #14 tab 07/18/20 Unknown Rx Hyclate TAB] Fluconazole (Nf) [Diflucan TAB] 150 mg PO ONCE #1 tablet 07/18/20 Unknown Rx ED Physical Exam - General Limitations: No Limitations General appearance: alert, in no apparent distress - Head Head exam: Present: atraumatic, normocephalic - Eye Eye exam: Present: normal appearance - ENT ENT exam: Present: mucous membranes moist - Respiratory Respiratory exam: Present: normal lung sounds bilaterally. Absent: respiratory distress, wheezes, rales, rhonchi, stridor, chest wall tenderness, accessory muscle use, decreased breath sounds, prolonged expiratory - Cardiovascular Cardiovascular Exam: Present: regular rate, normal rhythm, normal heart sounds. Absent: systolic murmur, diastolic murmur, rubs, gallop - GI/Abdominal GI/Abdominal exam: Present: soft, normal bowel sounds. Absent: distended, tenderness, guarding, rebound, rigid - Neurological Exam Neurological exam: Present: alert, oriented X3 - Psychiatric Psychiatric exam: Present: normal affect, normal mood - Skin Skin exam: Present: warm, dry, intact ED Course Vital Signs 07/18/20 08:07 Temperature 99.0 F Pulse Rate 96 H Respiratory 18 Rate Blood Pressure 152/83 O2 Sat by Pulse 97 Oximetry ED Medical Decision Making - Lab Data Result diagrams: 07/18/20 08:36 07/18/20 08:36 Lab Results 07/18/20 07/18/20 07/18/20 Range/Units 08:09 08:36 08:36 WBC 7.9 (4.5-11.0) K/mm3 RBC 5.19 H (3.65-5.03) M/mm3 Hgb 14.8 (11.8-15.2) gm/dl Hct 43.8 (35.5-45.6) % MCV 84 (84-94) fl MCH 29 (28-32) pg MCHC 34 (32-34) % RDW 13.5 (13.2-15.2) % Plt Count 307 (140-440) K/mm3 Lymph % (Auto) 25.7 (13.4-35.0) % [place] % (Auto) 9.9 H (0.0-7.3) % Eos % (Auto) 4.3 (0.0-4.3) % Baso % (Auto) 0.5 (0.0-1.8) % Lymph # (Auto) 2.0 (1.2-5.4) K/mm3 [place] # (Auto) 0.8 (0.0-0.8) K/mm3 Eos # (Auto) 0.3 (0.0-0.4) K/mm3 Baso # (Auto) 0.0 (0.0-0.1) K/mm3 Seg Neutrophils % 59.6 (40.0-70.0) % Seg Neutrophils # 4.7 (1.8-7.7) K/mm3 Sodium 132 L (137-145) mmol/L Potassium 4.3 (3.6-5.0) mmol/L Chloride 95.8 L (98-107) mmol/L Carbon Dioxide 26 (22-30) mmol/L Anion Gap 15 mmol/L BUN 13 (9-20) mg/dL Creatinine 0.9 (0.8-1.3) mg/dL Estimated GFR > 60 ml/min BUN/Creatinine Ratio 14 % Glucose 451 H (75-100) mg/dL POC Glucose 369 H (70-105) mg/dL Calcium 9.6 (8.4-10.2) mg/dL Total Bilirubin 0.60 (0.1-1.2) mg/dL AST 33 (5-40) units/L ALT 59 H (7-56) units/L Alkaline Phosphatase 76 (35-129) units/L Total Protein 7.3 (6.3-8.2) g/dL Albumin 4.5 (3.9-5) g/dL Albumin/Globulin Ratio 1.6 % Urine Color (Yellow) Urine Turbidity (Clear) Urine pH (5.0-7.0) Ur Specific Jackson (1.003-1.030) Urine Protein (Negative) mg/dL Urine Glucose (UA) (Negative) mg/dL Urine Ketones (Negative) mg/dL Urine Blood (Negative) Urine Nitrite (Negative) Urine Bilirubin (Negative) Urine Urobilinogen (<2.0) mg/dL Ur Leukocyte Esterase (Negative) Urine WBC (Auto) (0.0-6.0) /HPF Urine RBC (Auto) (0.0-6.0) /HPF 07/18/20 07/18/20 Range/Units 08:40 12:03 WBC (4.5-11.0) K/mm3 RBC (3.65-5.03) M/mm3 Hgb (11.8-15.2) gm/dl Hct (35.5-45.6) % MCV (84-94) fl MCH (28-32) pg MCHC (32-34) % RDW (13.2-15.2) % Plt Count (140-440) K/mm3 Lymph % (Auto) (13.4-35.0) % [place] % (Auto) (0.0-7.3) % Eos % (Auto) (0.0-4.3) % Baso % (Auto) (0.0-1.8) % Lymph # (Auto) (1.2-5.4) K/mm3 [place] # (Auto) (0.0-0.8) K/mm3 Eos # (Auto) (0.0-0.4) K/mm3 Baso # (Auto) (0.0-0.1) K/mm3 Seg Neutrophils % (40.0-70.0) % Seg Neutrophils # (1.8-7.7) K/mm3 Sodium (137-145) mmol/L Potassium (3.6-5.0) mmol/L Chloride (98-107) mmol/L Carbon Dioxide (22-30) mmol/L Anion Gap mmol/L BUN (9-20) mg/dL Creatinine (0.8-1.3) mg/dL Estimated GFR ml/min BUN/Creatinine Ratio % Glucose (75-100) mg/dL POC Glucose 245 H (70-105) mg/dL Calcium (8.4-10.2) mg/dL Total Bilirubin (0.1-1.2) mg/dL AST (5-40) units/L ALT (7-56) units/L Alkaline Phosphatase (35-129) units/L Total Protein (6.3-8.2) g/dL Albumin (3.9-5) g/dL Albumin/Globulin Ratio % Urine Color Straw (Yellow) Urine Turbidity Clear (Clear) Urine pH 6.0 (5.0-7.0) Ur Specific Jackson 1.028 (1.003-1.030) Urine Protein <15 mg/dl (Negative) mg/dL Urine Glucose (UA) >=500 (Negative) mg/dL Urine Ketones 20 (Negative) mg/dL Urine Blood Neg (Negative) Urine Nitrite Neg (Negative) Urine Bilirubin Neg (Negative) Urine Urobilinogen < 2.0 (<2.0) mg/dL Ur Leukocyte Esterase Neg (Negative) Urine WBC (Auto) < 1.0 (0.0-6.0) /HPF Urine RBC (Auto) < 1.0 (0.0-6.0) /HPF - Medical Decision Making Patient is a 44-year-old male who presents emergency room stating he was sent by the [facility] due to ketones in the urine. He states that he has been off of his Janumet for 3 weeks. He states that the [facility] gave him a refill of his janumet yesterday. He states that he is also been having dysuria for 3 days and white penile discharge. He states he is sexually active without protection. He reports that his girlfriend states that she has a yeast infection. He states he is now concerned he has a yeast infection. He denies any itching, abdominal pain, back pain, fever, nausea, vomiting, diarrhea, urinary retention, hematuria, pain or swelling in the testicles. He denies any other past medical history except for his diabetes. He denies any medication allergies. VSS. No abdominal tenderness on exam, no guarding, no rebound, no rigidity, normal bowel sounds, no peritoneal signs. Labs with mild dehydration and elevated blood glucose at 451. UA with 20 ketones and glycosuria. Patient given 1 L normal saline and IV insulin. Repeat blood glucose is 245. blood glucose likely elevated due to being off of his medications for 3 weeks. UA shows no evidence of UTI. Patient given 500 mg IM ceftriaxone to cover for gonorrhea. Patient given prescription for doxycycline to cover for chlamydia. Patient also given 1 tablet of fluconazole. Advised patient Please take medication as prescribed. Please have any partner tested and treated as well. Please follow-up with the health department or clinic for full STD panel. Avoid sexual intercourse. Increase your water intake. Eat a low sugar/low carbohydrate diet. Incorporate 30 to 60 minutes of daily exercise. Please take your diabetes medication as prescribed by your primary care doctor. Please keep a blood sugar log and monitor your blood glucose. Return to emergency room for any new or worsening symptoms. Critical care attestation.: If time is entered above; I have spent that time in minutes in the direct care of this critically ill patient, excluding procedure time. ED Disposition Clinical Impression: Hyperglycemia, Dehydration, Concern about STD in male without diagnosis, Dysuria Disposition: DC-01 TO HOME OR SELFCARE Is pt being admited?: No Does the pt Need Aspirin: No Condition: Stable Instructions: Hyperglycemia, [id number], Dysuria Additional Instructions: Please take medication as prescribed. Please have any partner tested and treated as well. Please follow-up with the health department or clinic for full STD panel. Avoid sexual intercourse. Increase your water intake. Eat a low sugar/low carbohydrate diet. Incorporate 30 to 60 minutes of daily exercise. Please take your diabetes medication as prescribed by your primary care doctor. Please keep a blood sugar log and monitor your blood glucose. Return to emergency room for any new or worsening symptoms. walk in clinic: [facility] Address: [address] [place] [id number] Prescriptions: Fluconazole (Nf) [Diflucan TAB] 150 mg PO ONCE #1 tablet Doxycycline Hyclate [Doxycycline Hyclate TAB] 100 mg PO BID 7 Days #14 tab Referrals: PRIMARY CARE, [Primary Care Provider] - 2-3 Days [facility] [Outside] - 2-3 Days Time of Disposition: 12:08 Print Language: BRITISH [place]
== END 2020-07-18 12:26 | disposition home or self-care (01) ==
LOC: ED 08:02
DX: E86.0 Dehydration (principal); R30.0 Dysuria; E11.65 Type 2 diabetes mellitus with hyperglycemia; F17.200 Nicotine dependence, unspecified, uncomplicated; Z71.1 Person with feared health complaint in whom no diagnosis is made; Z79.899 Other long term (current) drug therapy; Z91.010 Allergy to peanuts
CPT/HCPCS: 36415; 80053; 81001; 82962; 85025; 96361; 96372; 96374; 99283; J0696; J7030; J1815

== ENCOUNTER 2020-09-24 04:45 | Emergency (ER) | payer OTHER ==
[2020-09-24] MEDS ORDERED: ASPIRIN 325 MG TAB PO ONE (06:25)
--- NOTE | 2020-09-24 07:02 | XRay Report ---
CHEST 2 VIEWS INDICATION / CLINICAL INFORMATION: chest pain. COMPARISON: 04/12/2020 FINDINGS: SUPPORT DEVICES: None. HEART / MEDIASTINUM: No significant abnormality. LUNGS / PLEURA: No significant pulmonary or pleural abnormality. No pneumothorax. ADDITIONAL FINDINGS: No significant additional findings. IMPRESSION: 1. No acute findings. Signer Name: Saurav Mir MD Signed: 09/24/2020 6:57 AM Workstation Name: [id number]
[2020-09-24 07:12] LABS: Basophils # (Auto) 0.1 K/mm3 (0.0-0.1); Basophils % (Auto) 1.2 % (0.0-1.8); Eosinophils # (Auto) 0.3 K/mm3 (0.0-0.4); Eosinophils % (Auto) 3.9 % (0.0-4.3); Hematocrit 43.6 % (35.5-45.6); Hemoglobin 14.4 gm/dl (11.8-15.2); Lymphocytes % (Auto) 28.9 % (13.4-35.0); Mean Corpuscular HGB Conc 33 % (32-34); Mean Corpuscular Volume 85 fl (84-94); Monocytes # (Auto) 0.7 K/mm3 (0.0-0.8); Monocytes % (Auto) 9.9 % (0.0-7.3); Platelet Count 291 K/mm3 (140-440); Red Blood Count 5.11 M/mm3 (3.65-5.03); Red Cell Distribution Width 13.9 % (13.2-15.2)
[2020-09-24] MEDS ORDERED: NITROGLYCERIN 0.4 MG TAB SUBL SL PRN (07:21)
--- NOTE | 2020-09-24 07:25 | Emergency Department Report ---
ED Chest Pain HPI - General Chief Complaint: Chest Pain Stated Complaint: CHEST PAIN/SOB Time Seen by Provider: 09/24/20 07:13 Source: patient Mode of arrival: Ambulatory Limitations: No Limitations - History of Present Illness Initial Comments: Patient is a 45-year-old F [place]an male with past medical history of diabetes who is presenting with right-sided chest pain. 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 He he states is been constant aching pain estimated at a 4 out of 10 in severity. He denies cough cold congestion fevers chills or pleuritic component. 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 Severity scale (0 -10): 9 - Related Data Home Medications Medication Instructions Recorded Confirmed Last Taken AtorvaSTATin [Lipitor] 20 mg PO QHS 09/24/20 09/24/20 Unknown Insulin Detemir (Nf) [Levemir 35 unit SQ BID 09/24/20 09/24/20 Unknown Flextouch (Nf)] Sitagliptin Phos/Metformin HCl 1 each PO DAILY 09/24/20 09/24/20 Unknown [Janumet 50-1,000 mg Tablet] Previous Rx's Medication Instructions Recorded Last Taken Type Insulin Detemir (Nf) [Levemir 35 unit SQ QHS #1 each 09/24/20 Unknown Rx Flextouch (Nf)] Sitagliptin Phos/Metformin HCl 1 tab PO QDAY #30 tbmp.24hr 09/24/20 Unknown Rx [Janumet XR 50-500 mg] Allergies Allergy/AdvReac Type Severity Reaction Status Date / Time peanut Allergy Itching Verified 04/26/20 17:54 all fruit but bananas and Allergy Itching Uncoded 04/26/20 17:54 oranges Heart Score - HEART Score History: Slightly suspicious EKG: Normal Age: < 45 Risk factors: 1-2 risk factors Troponin: < normal limit HEART Score: 1 ED Review of Systems ROS: Stated complaint: CHEST PAIN/SOB Other details as noted in HPI Comment: All other systems reviewed and negative ED Past Medical Hx - Past Medical History Hx Diabetes: Yes - Surgical History Past Surgical History?: No - Social History Smoking Status: Never Smoker Substance Use Type: None - Medications Home Medications: Home Medications Medication Instructions Recorded Confirmed Last Taken Type AtorvaSTATin [Lipitor] 20 mg PO QHS 09/24/20 09/24/20 Unknown History Insulin Detemir (Nf) [Levemir 35 unit SQ BID 09/24/20 09/24/20 Unknown History Flextouch (Nf)] Insulin Detemir (Nf) [Levemir 35 unit SQ QHS #1 each 09/24/20 Unknown Rx Flextouch (Nf)] Sitagliptin Phos/Metformin HCl 1 each PO DAILY 09/24/20 09/24/20 Unknown History [Janumet 50-1,000 mg Tablet] Sitagliptin Phos/Metformin HCl 1 tab PO QDAY #30 tbmp.24hr 09/24/20 Unknown Rx [Janumet XR 50-500 mg] ED Physical Exam - General Limitations: No Limitations General appearance: alert, in no apparent distress - Head Head exam: Present: atraumatic, normocephalic - Eye Eye exam: Present: normal appearance - ENT ENT exam: Present: mucous membranes moist - Neck Neck exam: Present: normal inspection - Respiratory Respiratory exam: Present: normal lung sounds bilaterally. Absent: respiratory distress, wheezes, rales, rhonchi - Cardiovascular Cardiovascular Exam: Present: regular rate, normal rhythm, normal heart sounds. Absent: systolic murmur, diastolic murmur, rubs, gallop - GI/Abdominal GI/Abdominal exam: Present: soft, normal bowel sounds. Absent: distended, tenderness, guarding, rebound - Rectal Rectal exam: Present: deferred - Extremities Exam Extremities exam: Present: normal inspection - Back Exam Back exam: Present: normal inspection - Neurological Exam Neurological exam: Present: alert, oriented X3 - Psychiatric Psychiatric exam: Present: normal affect, normal mood - Skin Skin exam: Present: warm, dry, intact, normal color. Absent: rash ED Course Vital Signs 09/24/20 09/24/20 09/24/20 05:00 07:13 07:15 Temperature 98.1 F Pulse Rate 98 H Respiratory 16 Rate Blood Pressure 141/75 123/85 123/85 Blood Pressure [Left] O2 Sat by Pulse 97 98 Oximetry 09/24/20 09/24/20 09/24/20 07:18 07:19 07:30 Temperature Pulse Rate 84 89 Respiratory 18 18 17 Rate Blood Pressure 123/85 Blood Pressure 127/76 [Left] O2 Sat by Pulse 98 98 97 Oximetry 09/24/20 09/24/20 09/24/20 07:56 08:00 08:16 Temperature Pulse Rate 82 80 Respiratory 17 13 Rate Blood Pressure 129/75 133/76 128/84 Blood Pressure [Left] O2 Sat by Pulse 98 96 96 Oximetry 09/24/20 09/24/20 09/24/20 08:30 08:31 08:39 Temperature Pulse Rate 81 83 93 H Respiratory 15 18 Rate Blood Pressure 127/77 129/77 Blood Pressure 126/75 [Left] O2 Sat by Pulse 98 98 Oximetry 09/24/20 09/24/20 09/24/20 08:46 09:00 09:16 Temperature Pulse Rate 94 H 82 81 Respiratory 15 23 15 Rate Blood Pressure 126/75 126/75 129/76 Blood Pressure [Left] O2 Sat by Pulse 95 98 96 Oximetry 09/24/20 09:24 Temperature Pulse Rate 81 Respiratory 18 Rate Blood Pressure Blood Pressure 129/76 [Left] O2 Sat by Pulse 98 Oximetry BRIJESH score - Brijesh Score Age > 65: (0) No Aspirin use within the Past 7 Days: (0) No 3 or more CAD Risk Factors: (0) No 2 or more Angina events in past 24 hrs: (0) No Known CAD with more than 50% Stenosis: (0) No Elevated Cardiac Markers: (0) No ST Deviation Greater than 0.5mm: (0) No BRIJESH Score: 0 ED Medical Decision Making - Lab Data Result diagrams: 09/24/20 06:54 09/24/20 06:54 Lab Results 09/24/20 09/24/20 09/24/20 Range/Units 06:54 06:54 06:54 WBC 7.1 (4.5-11.0) K/mm3 RBC 5.11 H (3.65-5.03) M/mm3 Hgb 14.4 (11.8-15.2) gm/dl Hct 43.6 (35.5-45.6) % MCV 85 (84-94) fl MCH 28 (28-32) pg MCHC 33 (32-34) % RDW 13.9 (13.2-15.2) % Plt Count 291 (140-440) K/mm3 Lymph % (Auto) 28.9 (13.4-35.0) % Alexander % (Auto) 9.9 H (0.0-7.3) % Eos % (Auto) 3.9 (0.0-4.3) % Baso % (Auto) 1.2 (0.0-1.8) % Lymph # (Auto) 2.0 (1.2-5.4) K/mm3 Alexander # (Auto) 0.7 (0.0-0.8) K/mm3 Eos # (Auto) 0.3 (0.0-0.4) K/mm3 Baso # (Auto) 0.1 (0.0-0.1) K/mm3 Seg Neutrophils % 56.1 (40.0-70.0) % Seg Neutrophils # 4.0 (1.8-7.7) K/mm3 Sodium 136 L (137-145) mmol/L Potassium 4.4 (3.6-5.0) mmol/L Chloride 97.1 L (98-107) mmol/L Carbon Dioxide 27 (22-30) mmol/L Anion Gap 16 mmol/L BUN 10 (9-20) mg/dL Creatinine 0.9 (0.8-1.3) mg/dL Estimated GFR > 60 ml/min BUN/Creatinine Ratio 11 % Glucose 323 H (75-100) mg/dL Calcium 9.6 (8.4-10.2) mg/dL Total Bilirubin 0.30 (0.1-1.2) mg/dL AST 29 (5-40) units/L ALT 56 (7-56) units/L Alkaline Phosphatase 76 (35-129) units/L Troponin T < 0.010 (0.00-0.029) ng/mL Total Protein 7.7 (6.3-8.2) g/dL Albumin 4.3 (3.9-5) g/dL Albumin/Globulin Ratio 1.3 % Urine Opiates Screen Urine Methadone Screen Ur Barbiturates Screen Ur Phencyclidine Scrn Ur Amphetamines Screen U Benzodiazepines Scrn Urine Cocaine Screen U Marijuana (THC) Screen Drugs of Abuse Note 09/24/20 09/24/20 Range/Units 07:55 08:46 WBC (4.5-11.0) K/mm3 RBC (3.65-5.03) M/mm3 Hgb (11.8-15.2) gm/dl Hct (35.5-45.6) % MCV (84-94) fl MCH (28-32) pg MCHC (32-34) % RDW (13.2-15.2) % Plt Count (140-440) K/mm3 Lymph % (Auto) (13.4-35.0) % Alexander % (Auto) (0.0-7.3) % Eos % (Auto) (0.0-4.3) % Baso % (Auto) (0.0-1.8) % Lymph # (Auto) (1.2-5.4) K/mm3 Alexander # (Auto) (0.0-0.8) K/mm3 Eos # (Auto) (0.0-0.4) K/mm3 Baso # (Auto) (0.0-0.1) K/mm3 Seg Neutrophils % (40.0-70.0) % Seg Neutrophils # (1.8-7.7) K/mm3 Sodium (137-145) mmol/L Potassium (3.6-5.0) mmol/L Chloride (98-107) mmol/L Carbon Dioxide (22-30) mmol/L Anion Gap mmol/L BUN (9-20) mg/dL Creatinine (0.8-1.3) mg/dL Estimated GFR ml/min BUN/Creatinine Ratio % Glucose (75-100) mg/dL Calcium (8.4-10.2) mg/dL Total Bilirubin (0.1-1.2) mg/dL AST (5-40) units/L ALT (7-56) units/L Alkaline Phosphatase (35-129) units/L Troponin T < 0.010 (0.00-0.029) ng/mL Total Protein (6.3-8.2) g/dL Albumin (3.9-5) g/dL Albumin/Globulin Ratio % Urine Opiates Screen Negative Urine Methadone Screen Negative Ur Barbiturates Screen Negative Ur Phencyclidine Scrn Negative Ur Amphetamines Screen Negative U Benzodiazepines Scrn Negative Urine Cocaine Screen Negative U Marijuana (THC) Screen Negative Drugs of Abuse Note Disclamer - EKG Data -: EKG Interpreted by Pr - EKG Data 09/24/20 07:24 EKG shows a sinus rhythm with a rate of 85. [place] is normal intervals are normal. There is no ST segment elevations or depressions. Time of interpretation is 526 - Radiology Data [address] [place] [address] XRay Report Signed Patient: PILAR SPARKS MR#: [id number] : 1975 Acct:[id number] Age/Sex: 45 / M ADM Date: 09/24/20 Loc: ED Attending Dr: Ordering Physician: ED MD SCARLET Date of Service: 09/24/20 Procedure(s): XR chest routine 2V Accession Number(s): [id number] cc: ED MD SCARLET Fluoro Time In Minutes: CHEST 2 VIEWS INDICATION / CLINICAL INFORMATION: chest pain. COMPARISON: 04/12/2020 FINDINGS: SUPPORT DEVICES: None. HEART / MEDIASTINUM: No significant abnormality. LUNGS / PLEURA: No significant pulmonary or pleural abnormality. No pneumothorax. ADDITIONAL FINDINGS: No significant additional findings. IMPRESSION: 1. No acute findings. Signer Name: Saurav Mir MD Signed: 09/24/2020 6:57 AM Workstation Name: [id number] Transcribed By: TL Dictated By: Saurav Mir MD Electronically Authenticated By: Saurav Mir MD Signed Date/Time: 09/24/20 0657 - Medical Decision Making Patient with very atypical chest discomfort. 2 troponins negative. EKG is within normal limits. Patient will be discharged home. Is requesting refills of his Janumet and Levemir. Patient is been here numerous times for chest pain was never followed up. I have sent a chest pain referral form to [facility]. Critical care attestation.: If time is entered above; I have spent that time in minutes in the direct care of this critically ill patient, excluding procedure time. ED Disposition Clinical Impression: Atypical chest pain, Hyperglycemia Disposition: DC-01 TO HOME OR SELFCARE Is pt being admited?: No Does the pt Need Aspirin: No Condition: Stable Instructions: Nonspecific Chest Pain, Adult, Hyperglycemia Referrals: ROD ROTH MD [Staff Physician] - 3-5 Days Forms: Work/School Release Form(ED) Time of Disposition: 09:41
[2020-09-24 07:30] LABS: Alanine Aminotransferase 56 units/L (7-56); Albumin 4.3 g/dL (3.9-5); BUN/Creatinine Ratio 11; Blood Urea Nitrogen 10 mg/dL (9-20); Calcium 9.6 mg/dL (8.4-10.2); Hemolysis Index 31
[2020-09-24 08:14] LABS: Amphetamine Screen,Urine Negative; Benzodiazepines Screen,Urine Negative; Cannabinoid Screen,Urine Negative; Cocaine Screen,Urine Negative; Methadone Screen,Urine Negative; Opiate Screen,Urine Negative
[2020-09-24] MEDS ORDERED: SODIUM CHLORIDE 0.9% 1000 ML 1,000 ML IV ONE (08:46)
[2020-09-24] MEDS ORDERED: KETOROLAC 30 MG/1 ML INJ IV ONE (09:37)
[2020-09-24 10:33] VITALS: BP 124/78
--- NOTE | 2020-09-27 10:52 | Electrocardiograph Report ---
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
== END 2020-09-24 10:33 | disposition home or self-care (01) ==
LOC: ED 04:45
DX: R07.89 Other chest pain (principal); E11.65 Type 2 diabetes mellitus with hyperglycemia; Z79.4 Long term (current) use of insulin; Z79.899 Other long term (current) drug therapy; Z91.010 Allergy to peanuts; Z88.8 Allergy status to other drugs, medicaments and biological substances
CPT/HCPCS: 36415; 71046; 80053; 80307; 84484; 85025; 93005; 96361; 96374; 99284; J1885; J7030

== ENCOUNTER 2020-10-18 09:35 | Emergency (ER) | payer OTHER ==
--- NOTE | 2020-10-18 09:40 | Event Note ---
ED Screening Note ED Screening Note: dull cp left chest here recently for the same did not follow up hx dm htn [facility] This initial assessment/diagnostic orders/clinical plan/treatment(s) is/are subject to change based on patients health status, clinical progression and re- assessment by fellow clinical providers in the ED. Further treatment and workup at subsequent clinical providers discretion. Patient/guardian urged not to elope from the ED as their condition may be serious if not clinically assessed and managed. Initial orders include: ro acs
[2020-10-18 09:41] VITALS: BP 155/92
--- NOTE | 2020-10-18 10:13 | XRay Report ---
CHEST 2 VIEWS INDICATION: CHEST PAIN. COMPARISON: 09/24/2020. FINDINGS: Support devices: None. Heart: Within normal limits. Lungs/Pleura: No acute air space or interstitial disease. No significant pleural effusion. IMPRESSION: No acute findings. Signer Name: Alexandr Vaca MD Signed: 10/18/2020 10:09 AM Workstation Name: [id number]
[2020-10-18 10:21] LABS: Hematocrit 42.4 % (35.5-45.6); Hemoglobin 14.1 gm/dl (11.8-15.2); Mean Corpuscular HGB Conc 33 % (32-34); Mean Corpuscular Volume 86 fl (84-94); Platelet Count 329 K/mm3 (140-440); Red Blood Count 4.94 M/mm3 (3.65-5.03); Red Cell Distribution Width 13.9 % (13.2-15.2)
[2020-10-18 10:41] LABS: Alanine Aminotransferase 71 units/L (7-56); Albumin 4.2 g/dL (3.9-5); BUN/Creatinine Ratio 12; Blood Urea Nitrogen 12 mg/dL (9-20); Calcium 9.6 mg/dL (8.4-10.2); Hemolysis Index 10
--- NOTE | 2020-10-19 17:08 | Electrocardiograph Report ---
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
== END 2020-10-18 19:35 | disposition left against medical advice (07) ==
LOC: ED 09:35
DX: R07.89 Other chest pain (principal); Z53.21 Procedure and treatment not carried out due to patient leaving prior to being seen by health care provider
CPT/HCPCS: 36415; 71046; 80053; 82010; 82805; 84484; 85027; 93005

== ENCOUNTER 2021-04-25 12:39 | Emergency (ER) | payer OTHER ==
[2021-04-25] MEDS ORDERED: LIDOCAINE-MPF (1%) 10 MG/1 ML VIAL 5 ML INFILTRATI ONE (13:05)
[2021-04-25] MEDS ORDERED: AZITHROMYCIN 250 MG TAB PO ONE (13:05)
[2021-04-25] MEDS ORDERED: ONDANSETRON 4 MG ODT TAB PO ONE ×2 (13:06→13:10)
--- NOTE | 2021-04-25 13:10 | Emergency Department Report ---
ED Male HPI - General Chief complaint: Pain General Stated complaint: PAIN SHOOTING THRU BODY Time Seen by Provider: 04/25/21 12:58 Source: patient Mode of arrival: Ambulatory Limitations: No Limitations - History of Present Illness Initial comments: Chief complaint: Penis pain HPI: This is a 45-year-old male with history of insulin-dependent diabetes, dyslipidemia who presents with penile pain. Pain is prominent at the end of urine stream. Denies discharge. He is followed at [facility]. He denies rash. He denies testicular pain. MD Complaint: other (Penile pain) -: Gradual, week(s) (2 weeks) Location: penis Severity: mild Quality: burning Consistency: intermittent Worsens with: urination denies other symptoms - Related Data Home Medications Medication Instructions Recorded Confirmed Last Taken AtorvaSTATin [Lipitor] 20 mg PO QHS 09/24/20 09/24/20 Unknown Insulin Detemir (Nf) [Levemir 35 unit SQ BID 09/24/20 09/24/20 Unknown Flextouch (Nf)] Sitagliptin Phos/Metformin HCl 1 each PO DAILY 09/24/20 09/24/20 Unknown [Janumet 50-1,000 mg Tablet] Previous Rx's Medication Instructions Recorded Last Taken Type Insulin Detemir (Nf) [Levemir 35 unit SQ QHS #1 each 09/24/20 Unknown Rx Flextouch (Nf)] Ketorolac [Toradol] 10 mg PO Q6H PRN #12 tablet 09/24/20 Unknown Rx Sitagliptin Phos/Metformin HCl 1 tab PO QDAY #30 tbmp.24hr 09/24/20 Unknown Rx [Janumet XR 50-500 mg] cephALEXin [Keflex] 500 mg PO Q6HR 7 Days #28 capsule 04/25/21 Unknown Rx Allergies Allergy/AdvReac Type Severity Reaction Status Date / Time peanut Allergy Itching Verified 04/26/20 17:54 all fruit but bananas and Allergy Itching Uncoded 04/26/20 17:54 oranges ED Review of Systems ROS: Stated complaint: PAIN SHOOTING THRU BODY Other details as noted in HPI Comment: All other systems reviewed and negative Constitutional: denies: chills, fever, malaise Respiratory: denies: cough, shortness of breath Cardiovascular: denies: chest pain Gastrointestinal: denies: abdominal pain, nausea, vomiting Genitourinary: dysuria ED Past Medical Hx - Past Medical History Previous Medical History?: Yes Hx Diabetes: Yes - Social History Smoking Status: Never Smoker Substance Use Type: None - Medications Home Medications: Home Medications Medication Instructions Recorded Confirmed Last Taken Type AtorvaSTATin [Lipitor] 20 mg PO QHS 09/24/20 09/24/20 Unknown History Insulin Detemir (Nf) [Levemir 35 unit SQ BID 09/24/20 09/24/20 Unknown History Flextouch (Nf)] Insulin Detemir (Nf) [Levemir 35 unit SQ QHS #1 each 09/24/20 Unknown Rx Flextouch (Nf)] Ketorolac [Toradol] 10 mg PO Q6H PRN #12 tablet 09/24/20 Unknown Rx Sitagliptin Phos/Metformin HCl 1 each PO DAILY 09/24/20 09/24/20 Unknown History [Janumet 50-1,000 mg Tablet] Sitagliptin Phos/Metformin HCl 1 tab PO QDAY #30 tbmp.24hr 09/24/20 Unknown Rx [Janumet XR 50-500 mg] cephALEXin [Keflex] 500 mg PO Q6HR 7 Days #28 capsule 04/25/21 Unknown Rx ED Physical Exam - General Limitations: No Limitations General appearance: alert, in no apparent distress - Head Head exam: Present: atraumatic, normocephalic - Eye Eye exam: Present: normal appearance - ENT ENT exam: Present: mucous membranes moist - Neck Neck exam: Present: normal inspection, full ROM - Respiratory Respiratory exam: Present: normal lung sounds bilaterally. Absent: respiratory distress, wheezes, rales, rhonchi - Cardiovascular Cardiovascular Exam: Present: regular rate, normal rhythm, normal heart sounds. Absent: systolic murmur, diastolic murmur, rubs, gallop - GI/Abdominal GI/Abdominal exam: Present: soft, normal bowel sounds. Absent: distended, tenderness, guarding, rebound - Rectal Rectal exam: Present: deferred - Extremities Exam Extremities exam: Present: normal inspection - Back Exam Back exam: Present: normal inspection - Neurological Exam Neurological exam: Present: alert, oriented X3 - Psychiatric Psychiatric exam: Present: normal affect, normal mood - Skin Skin exam: Present: warm, dry, intact, normal color. Absent: rash ED Course Vital Signs 04/25/21 12:53 Temperature 98.8 F Pulse Rate 77 Respiratory 16 Rate Blood Pressure 113/69 [Left] O2 Sat by Pulse 100 Oximetry ED Medical Decision Making - Medical Decision Making Clinical impression: Urethritis, cystitis. Patient received ceftriaxone and p.o. azithromycin emergency department. Prescribed Keflex. Referred to outpatient medicine physician. Critical care attestation.: If time is entered above; I have spent that time in minutes in the direct care of this critically ill patient, excluding procedure time. ED Disposition Clinical Impression: Cystitis, Urethritis Disposition: 01 HOME / SELF CARE / HOMELESS Is pt being admited?: No Does the pt Need Aspirin: No Condition: Stable Instructions: Urethritis, Adult, Urinary Tract Infection, Adult Prescriptions: cephALEXin [Keflex] 500 mg PO Q6HR 7 Days #28 capsule Referrals: JASPER HOYT MD [Staff Physician] - 3-5 Days
[2021-04-25] MEDS ORDERED: LIDOCAINE (2%) 20 MG/1 ML VIAL 20 ML MDV INFILTRATI ONE (14:19)
[2021-04-25] MEDS ORDERED: traMADol 50 MG TAB PO ONE (14:24)
[2021-04-25 14:42] VITALS: BP 122/75
== END 2021-04-25 14:44 | disposition home or self-care (01) ==
LOC: ED 12:39
DX: N30.90 Cystitis, unspecified without hematuria (principal); N34.2 Other urethritis; E11.9 Type 2 diabetes mellitus without complications; Z91.010 Allergy to peanuts; Z91.018 Allergy to other foods
CPT/HCPCS: 96372; 99282; J0696; Q0162